=== PATIENT | male | born 1955 | race Caucasian/White ===

== ENCOUNTER 2017-11-26 08:13 | Observation (INO) | payer OTHER, MEDICARE, SELFPAY ==
[2017-11-26] VITALS (23 sets, daily range): BP systolic 113–157; BP diastolic 55–93; PULSE 76–104; RESP 15–18; TEMP 36.1–36.9; O2SAT 97–100; BMI 38.7; BMI 31.6; BMI 31.7
[2017-11-26] MEDS: 0.9% Normal Saline 1,000 ML 1000 ML IV (09:15)
[2017-11-26 09:31] LABS: BUN 23 mg/dL (7-18); Creatinine, Serum 1.13 mg/dL (0.70-1.30); EST Glomerular Filtration Rate 70 mL/min (>60); Estimated Creatinine Clearance 57.48 ml/min; Glucose 108 mg/dL (74-106)
[2017-11-26 09:32] LABS: ALB/GLOB Ratio 1.1 RATIO (0.9-2.4); AST(SGOT) 12 U/L (15-37); Alanine Aminotransfer ALT/SGPT 21 U/L (16-61); Albumin, Serum 3.5 g/dL (3.2-5.0); Alkaline Phosphatase 54 U/L (45-117); Anion Gap 5 (5-15); BUN/Creat Ratio 20.4 RATIO (10-20); Calcium,Total 8.3 mg/dL (8.5-10.1); Chloride 110 mmol/L (98-107); Est Glom Filt Rate - Afr Amer 85 mL/min (>60); Globulin 3.1 g/dL (2.2-4.2); Potassium 4.5 mmol/L (3.5-5.1); Protein, Total 6.6 g/dL (6.4-8.2); Sodium Level 141 mmol/L (136-145)
[2017-11-26 09:34] LABS: Absolute Lymphocyte Count 0.74 X10^3/ul (0.83-4.51); Absolute Neutrophil Count 2.6 X10^3/uL (2.0-7.7); Basophil# 0.03 X10^3/uL; Basophil% 0.8 % (0-1); Eosinophil# 0.04 X10^3/uL; Hematocrit 17.6 % (40-54); Hemoglobin 5.1 g/dl (13.0-16.5); Lymphocyte # 0.74 X10^3/ul (4.0); Lymphocyte % 18.6 % (19-41); Mean Corpuscular Hgb 23.3 pg (27.0-32.0); Mean Corpuscular Volume 80.4 fL (80-94); Mean Platelet Vol. 9.4 fl (6.2-12.0); Monocyte# 0.52 X10^3/uL; Monocyte% 13.1 % (0-10); Neutrophil # 2.63 X10^3/uL (2.7-7.7); Neutrophil % 66.2 % (47-70); Platelet Count 355 K/mm3 (150-450); RBC Distribution Width CV 15.3 % (11.6-14.6); RBC Distribution Width SD 42.2 fl (35.1-43.9); Red Blood Count 2.19 M/mm3 (4.6-6.2)
[2017-11-26 09:37] LABS: Differential Indicated SCAN CRITERIA MET; POSITIVE COUNT YES; POSITIVE DIFFERENTIAL NO; POSITIVE MORPHOLOGY NO
[2017-11-26 09:52] LABS: Anisocytosis 1+
--- NOTE | 2017-11-26 09:58 | ED.VISSUMM ---
- ER Visit Summary Date of Service: 11/26/17 Chief Complaint: [Dizziness and abnormal labs] History of Present Illness: The patient is a 62 M [presents to the emergency department with complaint of dizziness that started about a month ago initially. Patient states that he had a hard time standing and walking for a few days a month ago but then that resolved. Patient over the last 3 or 4 days has had increased weakness in lightheadedness with standing. Patient feels short of breath. Patient feels generally weak. Patient was seen yesterday by Dr. Barba who ordered some blood work and today was noted that his hemoglobin was 6.1 therefore patient was referred to the emergency department. Patient states that since yesterday's noted that his stools been black in color. Patient has had black stool before after using acid reducers. Patient denies any abdominal pain. Patient denies hematemesis.] Physical Examination: [HEENT-PERRLA, EOMI. Cranial nerves II through XII grossly intact. TMs clear. Mucous membranes moist. No adenopathy. Generally pale appearing. Cardiovascular-regular rate and rhythm without murmur or ectopy Lungs-clear to auscultation, chest wall stable without crepitus or subcu emphysema Abdomen-normoactive bowel sounds, soft, nontender, no rebound or rigidity, no peritoneal signs. Rectal exam-no blood in the rectal vault, no stool in the rectal vault, Hemoccult negative Extremities-intact ?4, normal range of motion, normal pulses, atraumatic] Test Results: [CBC with differential obtained showed a white count of 4.0, hemoglobin 5.1, hematocrit 17.6, platelets 355. Chemistries unremarkable. BUN was 23 and creatinine was 1.13.] Orthostatic vital signs were negative Emergency Department Course and Treatment: [Patient was given a liter normal same fluid bolus and was typed and crossed for 2 units packed red cells. Patient was started on Protonix IV.] Treatment Plan: [Patient case was discussed with Dr. Ramez Aguilar who will consult on the case I also spoke with Dr. Yariel Goldman who will admit patient. Plan will be to perform EGD tomorrow by Dr. Aguilar.] Disposition: [Admit] Impression: [Anemia-suspect upper GI bleed] This note was generated with [employer] software. It may contain incorrect words, spelling, and punctuation that were not noted in review of the chart prior to signing ED Disposition - Plan for ED Patient: Chief Complaint: Abn Labs Referrals: Rishabh Barba MD [Primary Care Provider] -
--- NOTE | 2017-11-26 10:04 | PCM.HP.STD ---
Problem List (1) Anemia Status: Acute (2) BMI 31.0-31.9,adult Status: Chronic History of Present Illness Date of Admission: 11/26/17 Chief Complaint: Generalized weakness The patient is a 62 year old M to the [facility] with no significant past medical history resides with generalized weakness. Patient reports a month history of progressive generalized weakness with minimal activity. Patient was seen and evaluated by his primary care physician Dr. Barba a day prior to his admission. Lab work was taken as a result was called the following day to present to the emergency department because was found to be profoundly anemic. Patient upon arrival to the emergency department was found to have hemoglobin of 5.1. On further questioning patient denied any epigastric discomfort. Denied any melenic stools. His last colonoscopy was 3 years prior to this admission they found polyps which were benign. Patient was typed and crossed much in the ED blood transfusion initiated the surgeon special education professional Dr. Aguilar was notified prior to patient being admitted to regular nursing floor for further management Past Medical History Past Medical History (Chronic Problems): Chronic Problems BMI 31.0-31.9,adult (Chronic) Allergies No Known Allergies Allergy (Verified 11/26/17 08:17) Home Medications: Ambulatory Orders Medication Instructions Recorded NK [NK] 11/26/17 Surgical History: no surgical history Smoking Status: Former smoker - *Family History Maternal History Items: Cancer - Paternal History Items: Cancer - Review of Systems Constitutional: Reports: Malaise, Weakness HEENT: Denies: Head Aches, Sinus Congestion, Sinus Drainage Cardiovascular: Denies: Chest Pain, Orthopnea, Palpitations, Paroxysmal Noc. Dyspnea Respiratory: Denies: Cough, Shortness of breath at rest, Shortness of breath upon exertion, Sputum production Gastrointestinal: Denies: Abdominal Pain, Hematemesis, Hematochezia, Nausea, Melena, Vomiting Genitourinary: Denies: Dysuria, Frequency, Hematuria, Urgency Musculoskeletal: Denies: Joint Pain, Joint Tenderness Skin: Denies: Rash Neurological: Denies: Focal weakness, Numbness, Tingling Psychiatric: Denies: Homicidal Ideations, Suicidal Ideations Hematologic/ Lymphatic: Denies: Easy Bruising, Easy Bleeding VTE Information - Inpt Only VTE Present on Admission: No VTE Mechan Device Prophylaxis: Knee High ANTHONY Hose VTE Pharm Prophylaxis ordered?: No Reason prophylaxis not ordered:: Medical Contraindication Patient Problems: Active and Suspected Problems Anemia (Acute) Objective: GENERAL: cooperative HEENT: pale conjunctiva, moist oral mucosa NECK; supple, normal thyroid, CHEST: Clear to auscultation bilaterally, HEART: Regular S1 S2, no audible murmurs ABDOMEN: soft, non-tender, normoactive bowel sounds, RECTAL: deferred EXTREMITIES: No edema, no clubbing, no cyanosis. SOIL TECHNOLOGIST: Awake, no lateralizing signs. SKIN: No lesions no erythema, - Physical Exam Vital Signs Temp Pulse Resp BP Pulse Ox 96.9 F L 91 16 137/62 H 98 11/26/17 08:15 11/26/17 09:22 11/26/17 09:20 11/26/17 09:22 11/26/17 09:20 Oxygen Delivery Method Room Air Weight: 102.4 kg Body Mass Index (BMI) 38.7 Microbiology Past 72 Hours 11/26/17 08:55 Stool Occult Blood (DASHA) - Final Stool Laboratory Tests Past 24 Hrs 11/26/17 11/26/17 11/26/17 08:55 09:00 09:00 WBC 4.0 L RBC 2.19 L Hgb 5.1 L* Hct 17.6 L MCV 80.4 MCH 23.3 L MCHC 29.0 L RDW 15.3 H RDW Differential 42.2 Plt Count 355 MPV 9.4 Immature Gran % (Auto) 0.300 Neut % (Auto) 66.2 Lymph % (Auto) 18.6 L [place] % (Auto) 13.1 H Eos % (Auto) 1.0 Baso % (Auto) 0.8 Absolute Neuts (auto) 2.6 Absolute Lymphs (auto) 0.74 L Total Counted Not Reportable Anisocytosis 1+ Sodium 141 Potassium 4.5 Chloride 110 H Carbon Dioxide 26.0 Anion Gap 5 BUN 23 H Creatinine 1.13 Estim Creat Clear Calc 57.48 Est GFR (MDRD) Af Amer 85 Est GFR (MDRD) Non-Af 70 BUN/Creatinine Ratio 20.4 H Glucose 108 H Calcium 8.3 L Total Bilirubin 0.30 AST 12 L ALT 21 Alkaline Phosphatase 54 Total Protein 6.6 Albumin 3.5 Globulin 3.1 Albumin/Globulin Ratio 1.1 Blood Type B NEGATIVE Antibody Screen NEGATIVE Crossmatch See Detail Assessment/Plan Active and Suspected Problems Anemia (Acute) Patient is a 62-year-old gentleman presented with progressive generalized weakness with easy fatigability found to be anemic with hemoglobin of 5.1 1. Anemia do suspect chronic blood loss anemia. Patient has been admitted to regular nursing floor did order for iron studies as well as stool guaiac. Patient did receive Protonix consultation was placed to Dr. Aguilar from the emergency department plans for patient undergo endoscopic evaluation on 11/27/2017. 2. Obesity with BMI of 31.7 weight loss advised 3. DVT prophylaxis in view of #1 did avoid the use of chemical prophylaxis Code Visit OBSV E&M: 22539 Initial observation care L3
[2017-11-26 12:09] LABS: Ferritin 4 ng/mL (26-388); Iron 9 ug/dL (65-175); Iron Binding Capacity,Total 516 ug/dL (250-450); PERCENT IRON SATURATION 1.7 % (15.0-55.0)
[2017-11-26 12:21] LABS: Immature Platelet Fraction 3.1 % (1.0-7.9); RET-HE 14.7 pg (30-35); Reticulocyte Count 3.82 % (0.5-1.5)
[2017-11-26 12:21] LABS: Vitamin B12 381 pg/mL (211-911)
--- NOTE | 2017-11-26 12:44 | CON.PCM_ITS ---
Problem List (1) Anemia Status: Acute Qualifiers: Anemia type: unspecified type Qualified Code(s): D64.9 - Anemia, unspecified Reason for Consult Date of Consultation: 11/26/17 History of Present Illness: The patient is a 62 year old M to the [facility] with no significant past medical history resides with generalized weakness. Patient reports a month history of progressive generalized weakness with minimal activity. Patient was seen and evaluated by his primary care physician Dr. Barba a day prior to his admission. Lab work was taken as a result was called the following day to present to the emergency department because was found to be profoundly anemic. Patient upon arrival to the emergency department was found to have hemoglobin of 5.1. On further questioning patient denied any epigastric discomfort. Denied any melenic stools. His last colonoscopy was 3 years prior to this admission they found polyps which were benign. Patient was typed and crossed much in the ED blood transfusion initiated. He will be admitted and undergo a bowel prep and tomorrow morning will undergo an upper and lower endoscopy. Past Medical History Past Medical History (Chronic Problems): Chronic Problems BMI 31.0-31.9,adult (Chronic) Allergies No Known Allergies Allergy (Verified 11/26/17 08:17) Home Medications: Ambulatory Orders Medication Instructions Recorded NK [NK] 11/26/17 Surgical History: no surgical history Smoking Status: Former smoker - *Family History Maternal History Items: Cancer - Paternal History Items: Cancer - Review of Systems Constitutional: Reports: Fatigue Cardiovascular: Denies: Chest Pain, Chest Pressure, Chest Tightness, Palpitations Respiratory: Reports: Shortness of Breath Gastrointestinal: Denies: Abdominal Pain, Constipation, Diarrhea, Hematemesis, Nausea, Melena, Vomiting Genitourinary: Denies: Dysuria, Frequency, Hematuria, Urgency Patient Problems: Active and Suspected Problems Anemia (Acute) - Physical Exam General: Alert, Oriented x3 HEENT: Atraumatic, PERRLA, EOMI, Normocephalic Oral: Moist Mucosa Lungs: Clear to auscultation Cardiovascular: Regular rate, Regular Rhythm, No murmurs Abdomen: Bowel Sounds Present, Soft, Non Tender, Non-Distended Vital Signs Temp Pulse Resp BP Pulse Ox 98.0 F 85 18 157/75 H 100 11/26/17 11:27 11/26/17 11:27 11/26/17 11:27 11/26/17 11:27 11/26/17 11:27 Oxygen Flow Rate (L/min) 2 Oxygen Delivery Method Room Air Weight: 227 lb 1.218 oz Body Mass Index (BMI) 31.6 Intake and Output for Last 24 Hours 11/24/17 11/25/17 11/26/17 23:59 23:59 23:59 Intake Total 0 / 0 Balance 0 / 0 Assessment/Plan Active and Suspected Problems Anemia (Acute) The plan is perform an upper and lower endoscopy on the patient tomorrow morning. He will be given a bowel prep tonight. Risk benefits of the procedure have been reviewed with he and his family and they agree to proceed.
[2017-11-26] MEDS: 0.9% Normal Saline 1,000 ML 75 ML IV (15:55)
[2017-11-26] MEDS: Electrolyte Solution/Peg's 4000 ML PO (15:56)
[2017-11-26 18:08] LABS: Hematocrit 26.1 % (40-54); Hemoglobin 6.1 g/dl (13.0-16.5)
[2017-11-27] VITALS (12 sets, daily range): BP systolic 101–143; BP diastolic 39–99; PULSE 71–78; RESP 16–18; TEMP 36.6–36.7; O2SAT 95–100; BMI 31.8
[2017-11-27] MEDS: 0.9% NaCl Peripheral Flush Adult/Peds IV (01:51)
[2017-11-27 04:02] LABS: Hemoglobin 9.1 g/dl (13.0-16.5)
[2017-11-27 04:05] LABS: International Normalized Ratio 1.2; Prothrombin Time (Protime)PT. 14.8 SECONDS (11.7-14.9)
[2017-11-27 04:06] LABS: Partial Thromboplast Time 29.7 Seconds (24.1-36.2)
[2017-11-27 04:22] LABS: Anion Gap 10 (5-15); BUN 16 mg/dL (7-18); BUN/Creat Ratio 18.5 RATIO (10-20); Calcium,Total 7.7 mg/dL (8.5-10.1); Chloride 114 mmol/L (98-107); Creatinine, Serum 0.86 mg/dL (0.70-1.30); EST Glomerular Filtration Rate 96 mL/min (>60); Est Glom Filt Rate - Afr Amer 116 mL/min (>60); Estimated Creatinine Clearance 93.14 ml/min; Glucose 88 mg/dL (74-106); Sodium Level 145 mmol/L (136-145)
--- NOTE | 2017-11-27 05:00 | EKG12_ITS ---
Test Reason : AM EKG Blood Pressure : / mmHG Vent. Rate : 075 BPM Atrial Rate : 075 BPM P-R Int : 152 ms QRS Dur : 092 ms QT Int : 408 ms P-R-T Axes : 005 040 029 degrees QTc Int : 455 ms Normal sinus rhythm Normal ECG When compared with ECG of 15-APR-2012 13:54, No significant change was found Confirmed by TONJA AKINS, LETICIA ([id number]), mapping editor CARLY GONZALEZ ([id number]) on 12/10/2017 2:21:21 PM Referred By: RODNEY Confirmed By:LETICIA EVANGELISTA MD
--- NOTE | 2017-11-27 06:50 | NURSING ---
Pt has left the floor with 2 endoscopy staff members.
--- NOTE | 2017-11-27 07:25 | PCM.OPRPT ---
Problem List (1) Anemia Status: Acute Qualifiers: Anemia type: unspecified type Qualified Code(s): D64.9 - Anemia, unspecified Report of Operation Date of Procedure: 11/27/17 Pre-Operative Diagnosis: d64 9 anemia Post-Operative Diagnosis: The same with gastric ulcers Surgery/Procedure Performed:: 99881 esophagogastroduodenoscopy. 80368 colonoscopy Type of Anesthesia:: MAC Anesthesiologist: Km Jaime Description of Procedure: Patient was brought into the endoscopy suite. Back of his throat was sprayed with benzocaine. A bite-block was placed. He was placed on the left lateral decubitus position. He was given graded anesthesia. The scope was inserted into the back of his throat and directed down through his esophagus into his stomach and into the duodenum without difficulty operative findings: 1. Duodenum: Normal appearance no mass lesions no ulcerations no erythema and no blood was seen. 2. Stomach: Significant amount of small ulcers throughout the body of the stomach. Nothing was actively bleeding there were no clots there were no visible vessel seen. Retroflexion showed a large hiatal hernia diaphragm was at 39 cm and the GE junction was located at 34 cm. Retroflexion did show some irritation at the GE junction. No mass lesions were identified. 3. Esophagus: Normal appearance no mass lesions no signs of esophagitis. The colonoscope was inserted into the rectum. It was directed through the sigmoid colon, descending colon, transverse colon, ascending colon, to the cecum. Operative findings: 1. Cecum: Normal appearance no mass lesions normal ileocecal valve. 2. Ascending colon: Normal appearance no mass lesions 3. Transverse colon: Normal appearance no mass lesions. 4. Descending colon: Normal appearance no mass lesions. 5. Sigmoid colon: Normal appearance moderate amount of diverticular disease was identified no mass lesions no signs of bleeding. 6. Rectum: Normal appearance no mass lesions retroflexion showed some minimal internal hemorrhoidal disease. Obvious source of his bleeding is from the gastric ulcers. Patient will need to be placed on a proton pump inhibitor as well as Carafate. More than likely he will be able to be discharged today and follow back up in my office. He will need to have another upper scope in 6 weeks. He will need another colonoscopy in 10 years. - Admit VTE Documentation VTE Present on Admission: No VTE Mechan Device Prophylaxis: SCD's VTE Pharm Prophylaxis ordered?: No Reason prophylaxis not ordered:: Treatment Not Indicated
--- NOTE | 2017-11-27 09:06 | PCM.DC ---
- Discharge Diagnoses Current Active Problems: Current Active and Chronic Problems Anemia (Acute) BMI 31.0-31.9,adult (Chronic) You will use the following diet at home:: No restrictions Allergies/Adverse Reactions: Allergies No Known Allergies Allergy (Verified 11/26/17 08:17) Medications to take at Discharge Pantoprazole Sodium [Protonix] 40 mg PO DAILY #120 tab 11/27/17 Sucralfate [Carafate] 1 gm PO 4X/DAY #120 udc 11/27/17 The following prescriptions were given: Pantoprazole Sodium [Protonix] 40 mg PO DAILY #120 tab Sucralfate [Carafate] 1 gm PO 4X/DAY #120 udc Primary Care Physician: Rishabh Barba MD [Primary Care Provider] - Please follow up with your Primary Care Physician in: in 1-2 weeks Please Follow Up With: Ramez Aguilar MD When: in 2-4 weeks Proposed Discharge Date: 11/27/17
--- NOTE | 2017-11-27 09:08 | PCM.DC.SUM ---
Discharge Date and Diagnosis - Problem List Patient Problems: Active and Suspected Problems NSAID induced gastritis (Acute) Anemia (Acute) Date of Admission: 11/26/17 Date of Discharge: 11/27/17 - Primary Discharge Diagnosis Active and Suspected Problems NSAID induced gastritis (Acute) Anemia (Acute) - Secondary Discharge Diagnosis Chronic Problems BMI 31.0-31.9,adult (Chronic) Hospital Course and Treatment Imaging Results: Laboratory Results Abnormal Lab Results 11/26/17 11/26/17 11/26/17 08:55 08:55 09:00 WBC 4.0 L RBC 2.19 L Hgb 5.1 L* Hct 17.6 L MCV 80.4 MCH 23.3 L MCHC 29.0 L RDW 15.3 H RDW Differential 42.2 Plt Count 355 MPV 9.4 Immature Gran % (Auto) 0.300 Neut % (Auto) 66.2 Lymph % (Auto) 18.6 L [place] % (Auto) 13.1 H Eos % (Auto) 1.0 Baso % (Auto) 0.8 Absolute Neuts (auto) 2.6 Absolute Lymphs (auto) 0.74 L Total Counted Not Reportable Immature Plt Fraction 3.1 Anisocytosis 1+ Retic Count 3.82 H Immature Retic Fraction 13.60 Retic Hgb Equivalent 14.7 L PT INR APTT Sodium 141 Potassium 4.5 Chloride 110 H Carbon Dioxide 26.0 Anion Gap 5 BUN 23 H Creatinine 1.13 Estim Creat Clear Calc 57.48 Est GFR (MDRD) Af Amer 85 Est GFR (MDRD) Non-Af 70 BUN/Creatinine Ratio 20.4 H Glucose 108 H Calcium 8.3 L Iron TIBC Iron Saturation Ferritin Total Bilirubin 0.30 AST 12 L ALT 21 Alkaline Phosphatase 54 Total Protein 6.6 Albumin 3.5 Globulin 3.1 Albumin/Globulin Ratio 1.1 Vitamin B12 Blood Type Antibody Screen Crossmatch 11/26/17 11/26/17 11/26/17 09:00 09:00 09:00 WBC RBC Hgb Hct MCV MCH MCHC RDW RDW Differential Plt Count MPV Immature Gran % (Auto) Neut % (Auto) Lymph % (Auto) [place] % (Auto) Eos % (Auto) Baso % (Auto) Absolute Neuts (auto) Absolute Lymphs (auto) Total Counted Immature Plt Fraction Anisocytosis Retic Count Immature Retic Fraction Retic Hgb Equivalent PT INR APTT Sodium Potassium Chloride Carbon Dioxide Anion Gap BUN Creatinine Estim Creat Clear Calc Est GFR (MDRD) Af Amer Est GFR (MDRD) Non-Af BUN/Creatinine Ratio Glucose Calcium Iron 9 L TIBC 516 H Iron Saturation 1.7 L Ferritin 4 L Total Bilirubin AST ALT Alkaline Phosphatase Total Protein Albumin Globulin Albumin/Globulin Ratio Vitamin B12 381 Blood Type B NEGATIVE Antibody Screen NEGATIVE Crossmatch See Detail 11/26/17 11/26/17 11/27/17 09:00 16:40 03:30 WBC RBC Hgb 6.1 L Hct 26.1 L MCV MCH MCHC RDW RDW Differential Plt Count MPV Immature Gran % (Auto) Neut % (Auto) Lymph % (Auto) [place] % (Auto) Eos % (Auto) Baso % (Auto) Absolute Neuts (auto) Absolute Lymphs (auto) Total Counted Immature Plt Fraction Anisocytosis Retic Count Immature Retic Fraction Retic Hgb Equivalent PT INR APTT Sodium 145 Potassium 4.0 Chloride 114 H Carbon Dioxide 21.0 Anion Gap 10 BUN 16 Creatinine 0.86 Estim Creat Clear Calc 93.14 Est GFR (MDRD) Af Amer 116 Est GFR (MDRD) Non-Af 96 BUN/Creatinine Ratio 18.5 Glucose 88 Calcium 7.7 L Iron TIBC Iron Saturation Ferritin Total Bilirubin AST ALT Alkaline Phosphatase Total Protein Albumin Globulin Albumin/Globulin Ratio Vitamin B12 Blood Type Antibody Screen Crossmatch See Detail 11/27/17 11/27/17 03:30 03:30 WBC RBC Hgb 9.1 L Hct 28.0 L MCV MCH MCHC RDW RDW Differential Plt Count MPV Immature Gran % (Auto) Neut % (Auto) Lymph % (Auto) [place] % (Auto) Eos % (Auto) Baso % (Auto) Absolute Neuts (auto) Absolute Lymphs (auto) Total Counted Immature Plt Fraction Anisocytosis Retic Count Immature Retic Fraction Retic Hgb Equivalent PT 14.8 INR 1.2 APTT 29.7 Sodium Potassium Chloride Carbon Dioxide Anion Gap BUN Creatinine Estim Creat Clear Calc Est GFR (MDRD) Af Amer Est GFR (MDRD) Non-Af BUN/Creatinine Ratio Glucose Calcium Iron TIBC Iron Saturation Ferritin Total Bilirubin AST ALT Alkaline Phosphatase Total Protein Albumin Globulin Albumin/Globulin Ratio Vitamin B12 Blood Type Antibody Screen Crossmatch ED and colonoscopy performed by Dr. Aguilar on 11/26/2017 EGD findings: 1. Duodenum: Normal appearance no mass lesions no ulcerations no erythema and no blood was seen. 2. Stomach: Significant amount of small ulcers throughout the body of the stomach. Nothing was actively bleeding there were no clots there were no visible vessel seen. Retroflexion showed a large hiatal hernia diaphragm was at 39 cm and the GE junction was located at 34 cm. Retroflexion did show some irritation at the GE junction. No mass lesions were identified. 3. Esophagus: Normal appearance no mass lesions no signs of esophagitis. Colonoscopy findings 1. Cecum: Normal appearance no mass lesions normal ileocecal valve. 2. Ascending colon: Normal appearance no mass lesions 3. Transverse colon: Normal appearance no mass lesions. 4. Descending colon: Normal appearance no mass lesions. 5. Sigmoid colon: Normal appearance moderate amount of diverticular disease was identified no mass lesions no signs of bleeding. 6. Rectum: Normal appearance no mass lesions retroflexion showed some minimal internal hemorrhoidal disease. Summary of Care Provided: Patient is a 62-year-old gentleman presented with progressive generalized weakness with easy fatigability found to be anemic with hemoglobin of 5.1 1. Anemia secondary to acute on chronic blood loss anemia from NSAID induced gastritis. This was confirmed with history as well as endoscopy performed by Dr. Aguilar on 11/26/2017. Patient did receive a total of unit PRBC. Discharge hemoglobin 9. Was advised to avoid NSAIDs on discharge was prescribed on Carafate and PPI with plans for patient undergo repeat EGD in [address] Aguilar. 2. Obesity with BMI of 31.7 weight loss advised 3. DVT prophylaxis in view of #1 did avoid the use of chemical prophylaxis Discharge Diet: No Restrictions Discharge Activity: Return to Normal Activity Home Medications: Medications to take at Discharge Pantoprazole Sodium [Protonix] 40 mg PO DAILY #120 tab 11/27/17 Sucralfate [Carafate] 1 gm PO 4X/DAY #120 udc 11/27/17 Following Prescrptions Were Given to Patient: Pantoprazole Sodium [Protonix] 40 mg PO DAILY #120 tab Sucralfate [Carafate] 1 gm PO 4X/DAY #120 udc Primary Care Physician: Rishabh Barba MD [Primary Care Provider] - Please follow up with your Primary Care Physician in: in 1-2 weeks Please Follow Up With: Ramez Aguilar MD When: in 2-4 weeks Disposition: Home Minutes spent on discharge:: 35 Patient Condition:: Stable Medical Necessity - Tobacco Use Smoking Status: Former smoker Meaningful Use Info Meaningful Use Diagnoses (Choose all that apply): None applicable Code Visit OBSV E&M: 86003 Observation care discharge
== END 2017-11-27 10:24 | disposition home or self-care (01) ==
LOC: ED 10:37 → MS3 10:59
PROVIDERS: Anesthesiology; Surgery; Admitting Provider Internal Medicine; Emergency Provider Emergency Medicine; Family Provider Family Medicine; PCP Family Medicine; Visit Provider Internal Medicine
PROC: 0DJD8ZZ Inspection of Lower Intestinal Tract, Via Natural or Artificial Opening Endoscopic (ICD-10-PCS; CPT 45378; principal; 2017-11-27 06:55)
DX: K29.60 Other gastritis without bleeding (principal); D62 Acute posthemorrhagic anemia; D50.0 Iron deficiency anemia secondary to blood loss (chronic); E66.9 Obesity, unspecified; Z68.31 Body mass index [BMI] 31.0-31.9, adult; Z71.3 Dietary counseling and surveillance; Z87.891 Personal history of nicotine dependence; K44.9 Diaphragmatic hernia without obstruction or gangrene; K64.8 Other hemorrhoids; K57.30 Diverticulosis of large intestine without perforation or abscess without bleeding
CPT/HCPCS: 43235; 45378; 36415; 36430; 80048; 80053; 82274; 82607; 82728; 83540; 83550; 85014; 85018; 85025; 85045; 85610; 85730; 86850; 86900; 86920; 86922; 93005; 96361; 96365; 96366; 96376; 99218; 99284; J7030; J7040; P9016; A4216; G0378; J1610; J3490

== ENCOUNTER 2018-01-05 06:15 | Day surgery (SDC) | payer OTHER, SELFPAY ==
--- NOTE | 2018-01-05 06:15 | DT_ITS ---
This patient was seen during an EMR downtime January 03, 2018 - January 10, 2018. This patient may have a combination of paper and electronic documentation or all paper documentation. All documentation is viewable within the e-chart portion of [facility] for each patient visit.
== END 2018-01-05 08:52 | disposition home or self-care (01) ==
LOC: EN 01-06 11:20
PROVIDERS: Family Provider Family Medicine; PCP Family Medicine; Visit Provider Surgery
PROC: 0DJ08ZZ Inspection of Upper Intestinal Tract, Via Natural or Artificial Opening Endoscopic (ICD-10-PCS; CPT 43235; principal; 2018-01-05 07:25)
DX: K21.9 Gastro-esophageal reflux disease without esophagitis (principal); Z87.19 Personal history of other diseases of the digestive system; D64.9 Anemia, unspecified; Z87.891 Personal history of nicotine dependence
CPT/HCPCS: 43235; J7120

== ENCOUNTER 2019-04-20 08:25 | Observation (INO) | payer OTHER, MEDICARE, SELFPAY ==
[2017-11-27 06:20] VITALS: BMI 31.8
[2019-04-20] VITALS (15 sets, daily range): BP systolic 83–142; BP diastolic 47–92; PULSE 89–116; RESP 16–18; TEMP 36.1–37.1; O2SAT 97–100; BMI 33.5; BMI 33.6
[2019-04-20 09:09] LABS: Absolute Lymphocyte Count 1.74 X10^3/uL (0.83-4.51); Absolute Neutrophil Count 7.5 X10^3/uL (2.0-7.7); Basophil# 0.05 X10^3/uL; Basophil% 0.5 % (0-1); Eosinophil# 0.05 X10^3/uL; Eosinophils% 0.5 % (0-5); Hematocrit 32.3 % (40-54); Hemoglobin 10.7 g/dL (13.0-16.5); Lymphocyte # 1.74 X10^3/ul (4.0); Lymphocyte % 16.7 % (19-41); Mean Corp Hgb Conc 33.1 g/dL (32-36); Mean Corpuscular Hgb 29.3 pg (27.0-32.0); Mean Corpuscular Volume 88.5 fL (80-94); Mean Platelet Vol. 9.6 fl (6.2-12.0); Monocyte# 1.12 X10^3/uL; Monocyte% 10.7 % (0-10); NRBC Flagged by Analyzer 0 % (0-5); Neutrophil # 7.45 X10^3/uL (2.7-7.7); Neutrophil % 71.3 % (47-70); Platelet Count 327 K/mm3 (150-450); RBC Distribution Width CV 13.4 % (11.6-14.6); RBC Distribution Width SD 43.8 fl (35.1-43.9); Red Blood Count 3.65 M/mm3 (4.6-6.2); White Blood Count 10.4 K/mm3 (4.4-11.0)
[2019-04-20 09:22] LABS: Anion Gap 10 (5-15); BUN 37 mg/dL (7-18); BUN/Creat Ratio 32.7 RATIO (10-20); Calcium,Total 8.4 mg/dL (8.5-10.1); Chloride 110 mmol/L (98-107); Creatinine, Serum 1.13 mg/dL (0.70-1.30); EST Glomerular Filtration Rate 70 mL/min (>60); Est Glom Filt Rate - Afr Amer 84 mL/min (>60); Estimated Creatinine Clearance 72.19 ml/min; Glucose 127 mg/dL (74-106); Potassium 4.2 mmol/L (3.5-5.1); Sodium Level 141 mmol/L (136-145)
--- NOTE | 2019-04-20 09:26 | ED.DCSUM_ITS ---
- ER Visit Summary Date of Service: 04/20/19 Chief Complaint: [Black stool and lightheaded History of Present Illness: The patient is a 63 M presents the emergency department complaint of stool that is black since yesterday. Patient also feeling lightheaded this morning and was also lightheaded last evening. He has some mild epigastric tenderness. Patient denies vomiting blood. He does have history of bleeding ulcer. Last colonoscopy was about a year ago. Patient denies taking NSAIDs. Patient denies any chest pain or shortness of breath.] Physical Examination: [HEENT-PERRLA, EOMI. Cranial nerves II through XII grossly intact. TMs clear. Mucous membranes moist. No adenopathy. Cardiovascular-regular rate and rhythm without murmur or ectopy Lungs-clear to auscultation, chest wall stable without crepitus or subcu emphysema Abdomen-normoactive bowel sounds, soft. Patient has some mild tenderness in the epigastric region. There is no rebound, rigidity, or perineal signs. Rectal exam-patient had black tarry stool no masses palpated in the rectal vault. Extremities-intact ?4, normal range of motion, normal pulses, atraumatic] Test Results: [CBC with differential obtained showed a white count of 10.4, hemoglobin 10.7, hematocrit 32, placed 327. Chemistries unremarkable. BUN was 37 and creatinine 1.13.] Hemoccult of stool was negative which I believe is a false negative. Emergency Department Course and Treatment: [Patient had 2 lines established. Patient was given normal saline 1 L bolus. Patient was seen in the department by general surgeon Dr. Betancourt who will admit the patient.] Patient was started on Protonix IV Treatment Plan: [Admit for upper scope] Disposition: [Admit] Impression: [Upper GI bleed] This note was generated with [employer] dictation software. It may contain incorrect words, spelling, and punctuation that were not noted in review of the chart prior to signing ED Disposition - Plan for ED Patient: Referrals: Rishabh Barba MD [Primary Care Provider] -
[2019-04-20] MEDS: 0.9% Normal Saline 1,000 ML 1000 ML IV (09:28)
--- NOTE | 2019-04-20 09:32 | PCM.HP.STD ---
Problem List (1) GI bleed Status: Acute Qualifiers: GI bleed type/associated pathology: melena Qualified Code(s): K92.1 - Melena History of Present Illness Date of Admission: 04/20/19 Chief Complaint: Dizziness and weakness The patient is a 63 year old M reports that he was dizzy yesterday evening. He has been having black tarry stools this morning. He does not describe any abdominal pain. He says he is very dizzy and weak. Past Medical History Past Medical History (Chronic Problems): Chronic Problems (Last Reviewed 12/28/17 @ 10:08 by Nicol Eagle) BMI 31.0-31.9,adult (Chronic) Medical History: Medical History (Last Reviewed 12/28/17 @ 10:08 by Nicol Eagle) NSAID induced gastritis (Acute) K29.60, T39.395A Anemia (Acute) D64.9 BMI 31.0-31.9,adult (Chronic) Z68.31 Allergies No Known Allergies Allergy (Verified 04/20/19 08:26) Home Medications: Ambulatory Orders Medication Instructions Recorded NK 04/20/19 Surgical History: Surgical History (Last Updated 12/28/17 @ 10:08 by Nicol Eagle) History of esophagogastroduodenoscopy (EGD) Z98.890 2018 Normal colonoscopy 2018 Surgical History: no surgical history Smoking Status: Never smoker - *Family History Maternal History Items: Cancer - Paternal History Items: Cancer - Review of Systems Constitutional: Reports: Fatigue. Denies: Anorexia, Chills, Fever HEENT: Denies: Difficulty Swallowing Cardiovascular: Denies: Chest Pain Respiratory: Denies: Cough, Pleuritic Pain, Shortness of Breath Gastrointestinal: Reports: Melena. Denies: Abdominal Pain, Hematemesis, Nausea, Vomiting Genitourinary: Denies: Dysuria Musculoskeletal: Denies: Joint Tenderness Skin: Denies: Jaundice Neurological: Denies: Balance problems Psychiatric: Denies: Anxiety Endocrine: Denies: Change in Body Habitus VTE Information - Inpt Only VTE Present on Admission: No VTE Mechan Device Prophylaxis: SCD's Patient Problems: Active and Suspected Problems (Last Reviewed 12/28/17 @ 10:08 by Nicol Eagle) GI bleed (Acute) - Physical Exam General: Alert, Oriented x3 HEENT: Atraumatic, PERRLA Neck: No JVD Lungs: Normal air movement Cardiovascular: Regular Rhythm, Tachycardic Abdomen: Soft, Non Tender, Non-Distended Extremities: No clubbing Skin: No rashes Musculoskeletal: No Muscle Wasting Lymphatic: No Cervical, Supraclavicular, or Inguinal Adenopathy Neurological: Cranial nerves II-XII grossly intact Psych/Mental Status: Normal Affect Vital Signs Temp Pulse Resp BP Pulse Ox 97.7 F L 107 H 16 124/88 H 99 04/20/19 08:26 04/20/19 09:30 04/20/19 09:30 04/20/19 09:30 04/20/19 08:56 Oxygen Delivery Method Room Air Weight: 240 lb Body Mass Index (BMI) 33.5 Microbiology Past 72 Hours 04/20/19 08:55 Stool Occult Blood (DASHA) - Final Stool Laboratory Tests Past 24 Hrs 04/20/19 04/20/19 04/20/19 08:58 08:58 08:58 WBC 10.4 RBC 3.65 L Hgb 10.7 L Hct 32.3 L MCV 88.5 MCH 29.3 MCHC 33.1 RDW Std Deviation 43.8 RDW Coeff of Joi 13.4 Plt Count 327 MPV 9.6 Immature Gran % (Auto) 0.300 Neut % (Auto) 71.3 H Lymph % (Auto) 16.7 L [place] % (Auto) 10.7 H Eos % (Auto) 0.5 Baso % (Auto) 0.5 Absolute Neuts (auto) 7.5 Absolute Lymphs (auto) 1.74 Nucleated RBC % 0 Sodium 141 Potassium 4.2 Chloride 110 H Carbon Dioxide 21.0 Anion Gap 10 BUN 37 H Creatinine 1.13 Estim Creat Clear Calc 72.19 Est GFR (MDRD) Af Amer 84 Est GFR (MDRD) Non-Af 70 BUN/Creatinine Ratio 32.7 H Glucose 127 H Lactic Acid Pending Calcium 8.4 L Blood Type Antibody Screen 04/20/19 08:58 WBC RBC Hgb Hct MCV MCH MCHC RDW Std Deviation RDW Coeff of Joi Plt Count MPV Immature Gran % (Auto) Neut % (Auto) Lymph % (Auto) [place] % (Auto) Eos % (Auto) Baso % (Auto) Absolute Neuts (auto) Absolute Lymphs (auto) Nucleated RBC % Sodium Potassium Chloride Carbon Dioxide Anion Gap BUN Creatinine Estim Creat Clear Calc Est GFR (MDRD) Af Amer Est GFR (MDRD) Non-Af BUN/Creatinine Ratio Glucose Lactic Acid Calcium Blood Type Pending Antibody Screen Pending Assessment/Plan All Active Problems (Last Reviewed 12/28/17 @ 10:08 by Nicol Eagle) GI bleed (Acute) NSAID induced gastritis (Acute) Anemia (Acute) 63-year-old male with upper GI bleed 1. Patient reports he is very lightheaded. He had black tarry stools and a rectal exam that also showed black tarry stool. His hemoglobin is 10 currently. He is not having any hematemesis. He had an EGD little over a year ago which showed multiple small ulcers in the stomach which were bleeding. He was started on a PPI and Carafate and did well until he stopped his PPI. 2. I will check a gastrin level to rule out ZE syndrome. I will also take biopsies of the antrum to check for H. pylori although his last H. pylori was negative. I will perform an EGD this morning to make sure that there is no overt bleeding which is able to be stopped with clips or injection. I will admit the patient following EGD and check serial hemoglobins and start PPI. 3. I explained endoscopy in detail to the patient. I explained the risks including but not limited to stroke or heart attack with anesthesia, perforation of the GI tract, bleeding, infection. I explained that any of these could necessitate further emergency surgery. The patient understands and all questions were answered sufficiently. The patient wishes to proceed with procedure. Tam Betancourt MD Pager: [facility] [address] [place] [address], [address] [place] [address] Office:
--- NOTE | 2019-04-20 10:00 | EGD_PTH ---
PATIENT: BONG CHATTERJEE LOC: MS3 U#:[id number] AGE/SX: 63/M ROOM: MS318 RE04/20/[address]: Dr. Tam Betancourt MD : 1955 BED: 1 DIS: 04/21/2019 SPEC #: [id number] RECD: 04/20/19 11:38 STATUS: GIBSON BRENNA #: [id number] KUMAR: 04/20/19 10:[address]: Tam Betancourt DEPT: SURGICAL PATHOLOGY RECD BY: Luis Enrique Jordan ENTERED: 04/20/19 14:24 SP TYPE: EGD BIOPSY [facility] DR: Dr. Rishabh Barba MD Tissues: A - Gastric mucous membrane B - Gastric mucous membrane Procedures: Surgery Specimen Level IV HEADER OPERATION: EGD ([facility]) PRE-OP DIAGNOSIS: GI bleed TISSUE SUBMITTED: A - Antral biopsy for H. pylori and pathology, B - Gastric ulcers biopsies for H.?pylori MICROSCOPIC DIAGNOSIS A. Antral biopsy: Mild gastritis. See microscopic description and comment. B. Gastric ulcer, biopsy: Fragments of gastric mucosa with focal ulceration, fibrinous exudation and acute and chronic inflammation. See comment. SJ:brie 04/21/19 COMMENT A & B. The results of immunohistochemistry for Helicobacter pylori will be reported separately ([id number]). MICROSCOPIC DESCRIPTION Slides are reviewed. A. The specimen shows fragments of gastric mucosa with chronic inflammatory cell infiltrates in the lamina propria consisting of lymphocytes and plasma cells, consistent with mild chronic gastritis. GROSS DESCRIPTION A - Received in fixative is one container labeled with the patient's name and designated antral biopsy. The specimen consists of two irregular fragments of light smiley soft tissue that in aggregate measure 0.5 x 0.3 x 0.1 cm. The specimen is totally submitted in one cassette. B - Received in fixative is one container labeled with the patient's name and designated gastric ulcer biopsy. The specimen consists of multiple irregular fragments of light smiley soft tissue that in aggregate measure 1 x 1 x 0.1 cm. The specimen is totally submitted in one cassette. / CHARLIE:brie 04/20/19 TC:2 CPT: 18010 x2
--- NOTE | 2019-04-20 10:00 | IMM_PTH ---
PATIENT: BONG CHATTERJEE LOC: MS3 U#:[id number] AGE/SX: 63/M ROOM: MS318 RE04/20/[address]: Dr. Tam Betancourt MD : 1955 BED: 1 DIS: 04/21/2019 SPEC #: [id number] RECD: 04/20/19 14:39 STATUS: GIBSON REQ #: [id number] KUMAR: 04/20/19 10:[address]: Tam Betancourt DEPT: IMMUNOHISTOCHEMISTRY RECD BY: Maribel Adams ENTERED: 04/20/19 14:40 SP TYPE: IMMUNO OTHR DR: Dr. Rishabh Barba MD Tissues: A - Stomach, NOS B - Stomach, NOS Procedures: H Pylori (initial) PHYSICIAN & INSTITUTION [place] [address] SPECIMEN INFORMATION: Tissue Source: A - Antral biopsy, B - Gastric ulcer biopsy Clinical Info: GI bleed Specimen Number: [id number] A & B CPT code: 86254 x2 METHODOLOGY: Deparaffinized sections of prefer/formalin-fixed tissue or PAP/DQ stained slides are incubated with monoclonal/polyclonal antibodies/oligonucleotide probes. Localization is made via biotin free immunoperoxidase method. Appropriate controls are performed and reacted as expected. Results on target cell population are indicated in the following table: RESULTS: ANTIBODY / CLONE RESULT Block A H Pylori (polyclonal) negative Block B H Pylori (polyclonal) negative These tests were developed and their performance characteristics determined by [facility]. They may not have been cleared or approved by the U.S. Food and Drug Administration. The FDA has determined that such clearance or approval is not necessary. INTERPRETATION: A. Antral biopsy: Negative for Helicobacter pylori organisms. B. Gastric ulcer biopsy: Negative for Helicobacter pylori organisms. SJ:brie 04/21/19
[2019-04-20] MEDS: 0.9% Normal Saline 1,000 ML 125 ML IV ×3 (10:04→14:09)
[2019-04-20 10:15] LABS: Lactic Acid 2.2 mmol/L (0.4-2.0)
--- NOTE | 2019-04-20 10:55 | OP.ENDO_ITS ---
04/20/2019 Rishabh Barba [address] [place] [address] Re : Upper GI endoscopy procedure for Jeffry Kennedy Dear Dr. Barba This procedure was performed on April. My impressions and recommendations are as follows: Impressions : - Non-bleeding gastric ulcers with no stigmata of bleeding. Biopsied. Recommendations : - Await pathology results. - Clear liquid diet. - [facility]. - Continue present medications. My findings are described in the full procedure note, which is enclosed. If I can be of further assistance, please feel free to contact me at Doctor phone number(s): , Work: . Sincerely, Tam Betancourt MD 04/20/2019 10:55:48 AM This report has been signed electronically.
[2019-04-20 13:04] LABS: Reflex Lactate? Y
[2019-04-20 14:27] LABS: Lactic Acid 4.1 mmol/L (0.4-2.0)
[2019-04-20] MEDS: Lactated Ringers 1,000 ML 999 ML IV (15:15)
[2019-04-20 15:23] LABS: Absolute Lymphocyte Count 1.89 X10^3/uL (0.83-4.51); Absolute Neutrophil Count 8.8 X10^3/uL (2.0-7.7); Basophil# 0.04 X10^3/uL; Basophil% 0.3 % (0-1); Eosinophil# 0.02 X10^3/uL; Eosinophils% 0.2 % (0-5); Hematocrit 28.7 % (40-54); Hemoglobin 9.1 g/dL (13.0-16.5); Lymphocyte # 1.89 X10^3/ul (4.0); Lymphocyte % 15.8 % (19-41); Mean Corp Hgb Conc 31.7 g/dL (32-36); Mean Corpuscular Hgb 28.5 pg (27.0-32.0); Mean Platelet Vol. 9.4 fl (6.2-12.0); Monocyte# 1.22 X10^3/uL; Monocyte% 10.2 % (0-10); NRBC Flagged by Analyzer 0 % (0-5); Neutrophil # 8.78 X10^3/uL (2.7-7.7); Neutrophil % 73.2 % (47-70); Platelet Count 242 K/mm3 (150-450); RBC Distribution Width CV 13.8 % (11.6-14.6); RBC Distribution Width SD 45.1 fl (35.1-43.9); Red Blood Count 3.19 M/mm3 (4.6-6.2)
[2019-04-20 15:35] LABS: Anion Gap 4 (5-15); BUN 33 mg/dL (7-18); BUN/Creat Ratio 31.1 RATIO (10-20); Calcium,Total 7.9 mg/dL (8.5-10.1); Chloride 112 mmol/L (98-107); Creatinine, Serum 1.06 mg/dL (0.70-1.30); EST Glomerular Filtration Rate 75 mL/min (>60); Est Glom Filt Rate - Afr Amer 91 mL/min (>60); Estimated Creatinine Clearance 76.96 ml/min; Glucose 107 mg/dL (74-106); Sodium Level 139 mmol/L (136-145)
[2019-04-20] MEDS: Sucralfate 1 GM Tablet PO ×2 (15:59→21:35)
[2019-04-20 19:47] LABS: Lactic Acid 1.8 mmol/L (0.4-2.0)
[2019-04-21] VITALS: PULSE 94; RESP 16
[2019-04-21] MEDS: 0.9% Normal Saline 1,000 ML 125 ML IV (00:59)
[2019-04-21 05:00] VITALS: BP 132/52; PULSE 89; RESP 18; TEMP 36.6; O2SAT 96
[2019-04-21] MEDS: Sucralfate 1 GM Tablet PO ×2 (06:40→11:00)
[2019-04-21 07:38] LABS: Absolute Lymphocyte Count 1.46 X10^3/uL (0.83-4.51); Absolute Neutrophil Count 3.3 X10^3/uL (2.0-7.7); Basophil# 0.03 X10^3/uL; Basophil% 0.6 % (0-1); Eosinophil# 0.06 X10^3/uL; Eosinophils% 1.1 % (0-5); Hematocrit 23.6 % (40-54); Hemoglobin 7.5 g/dL (13.0-16.5); Lymphocyte # 1.46 X10^3/ul (4.0); Lymphocyte % 26.9 % (19-41); Mean Corp Hgb Conc 31.8 g/dL (32-36); Mean Corpuscular Volume 91.1 fL (80-94); Mean Platelet Vol. 10.1 fl (6.2-12.0); Monocyte# 0.62 X10^3/uL; Monocyte% 11.4 % (0-10); NRBC Flagged by Analyzer 0 % (0-5); Neutrophil # 3.25 X10^3/uL (2.7-7.7); Neutrophil % 59.8 % (47-70); Platelet Count 188 K/mm3 (150-450); RBC Distribution Width CV 14.1 % (11.6-14.6); RBC Distribution Width SD 45.9 fl (35.1-43.9); Red Blood Count 2.59 M/mm3 (4.6-6.2); White Blood Count 5.4 K/mm3 (4.4-11.0)
[2019-04-21 07:52] LABS: Anion Gap 7 (5-15); BUN 19 mg/dL (7-18); BUN/Creat Ratio 21.9 RATIO (10-20); Calcium,Total 7.9 mg/dL (8.5-10.1); Chloride 112 mmol/L (98-107); Creatinine, Serum 0.87 mg/dL (0.70-1.30); EST Glomerular Filtration Rate 95 mL/min (>60); Est Glom Filt Rate - Afr Amer 115 mL/min (>60); Estimated Creatinine Clearance 93.76 ml/min; Glucose 90 mg/dL (74-106); Potassium 3.9 mmol/L (3.5-5.1); Sodium Level 142 mmol/L (136-145)
[2019-04-21 08:57] VITALS: BP 150/78; PULSE 96; RESP 22; TEMP 37; O2SAT 99
[2019-04-21 09:00] VITALS: BP 150/78; PULSE 96; RESP 22; TEMP 37; O2SAT 99
[2019-04-21 09:42] VITALS: RESP 16
--- NOTE | 2019-04-21 09:43 | NURSING ---
Pt states he had a black Tarry stool today after Dr. Betancourt saw him this morning. This nurse aware and informed patient and of HGB of 7.5 this morning. IVF was stopped per order. Dr. Betancourt texted via [employer] to inform of black, Tarry Stool and hgb 7.5
[2019-04-21] MEDS: Pantoprazole Sodium 20 MG Tablet PO (10:59)
[2019-04-21 12:55] LABS: Hematocrit 25.7 % (40-54); Hemoglobin 8.3 g/dL (13.0-16.5)
[2019-04-21 13:03] VITALS: BP 150/76; PULSE 97; RESP 18; TEMP 36.6; O2SAT 100
--- NOTE | 2019-04-21 13:18 | DCINST_ITS ---
- Discharge Diagnoses Current Active Problems: Current Active and Chronic Problems (Last Reviewed 12/28/17 @ 10:08 by Nicol Eagle) GI bleed (Acute) You will use the following diet at home:: Regular Your food should be the consistency of: Regular Your liquids should be the consistency of: Regular/Thin Discharge Activity: Return to Normal Activity Call your doctor if your incision/area has: Sudden Increased Bleeding Call your doctor if you observe: Fever of 101 or Higher, Shortness of breath, Dizziness Allergies/Adverse Reactions: Allergies No Known Allergies Allergy (Verified 04/20/19 10:05) Medications to take at Discharge Omeprazole 20 mg PO BID 30 Days #60 tablet. 04/21/19 Sucralfate [Carafate] 1 gm PO 1HR_ACHS 30 Days #120 tab 04/21/19 The following prescriptions were given: Sucralfate [Carafate] 1 gm PO 1HR_ACHS 30 Days #120 tab Transmission Status: Pending to [facility] Omeprazole 20 mg PO BID 30 Days #60 tablet. Transmission Status: Pending to [facility] Primary Care Physician: Rishabh Barba MD [Primary Care Provider] - Test Results: Test results from this visit will be discussed in further detail at your follow- up appointment, if applicable. Please Follow Up With: Tam Betancourt MD When: Call to make 2 week follow up appt [phone]
--- NOTE | 2019-04-21 13:31 | NURSING ---
Aware of Vital Signs taken recently by [facility] Speech And Language Assistant
[2019-04-23 10:33] LABS: Gastrin, Serum 73 pg/mL (0-115)
== END 2019-04-21 12:20 | disposition home or self-care (01) ==
LOC: ED 09:26 → MS2 09:54 → MS3 12:09
PROVIDERS: Admitting Provider Surgery; Emergency Provider Emergency Medicine; Family Provider Family Medicine; PCP Family Medicine; Referring Provider Surgery; Visit Provider Surgery
PROC: 0DJ08ZZ Inspection of Upper Intestinal Tract, Via Natural or Artificial Opening Endoscopic (ICD-10-PCS; CPT 43235; principal; 2019-04-20 09:55)
DX: K25.9 Gastric ulcer, unspecified as acute or chronic, without hemorrhage or perforation (principal); K92.1 Melena; Z86.2 Personal history of diseases of the blood and blood-forming organs and certain disorders involving the immune mechanism; Z87.891 Personal history of nicotine dependence; K44.9 Diaphragmatic hernia without obstruction or gangrene
CPT/HCPCS: 43239; 36415; 80048; 82274; 82941; 83605; 85014; 85018; 85025; 86850; 86900; 86901; 88305; 88342; 96361; 96365; 96366; 99218; 99285; J7030; J7120; A4216; G0378

== ENCOUNTER → 2019-05-04 12:26 | Outpatient (CLI) | payer OTHER, SELFPAY ==
[2019-04-20 12:25] VITALS: BMI 33.6
[2019-05-04 12:54] LABS: Hematocrit 27.2 % (40-54); Hemoglobin 8.5 g/dL (13.0-16.5); Mean Corp Hgb Conc 31.3 g/dL (32-36); Mean Corpuscular Hgb 26.7 pg (27.0-32.0); Mean Corpuscular Volume 85.5 fL (80-94); Mean Platelet Vol. 9.1 fl (6.2-12.0); Platelet Count 361 K/mm3 (150-450); RBC Distribution Width CV 14.4 % (11.6-14.6); RBC Distribution Width SD 45.1 fl (35.1-43.9); Red Blood Count 3.18 M/mm3 (4.6-6.2); White Blood Count 5.7 K/mm3 (4.4-11.0)
== END ==
PROVIDERS: Family Provider Family Medicine; PCP Family Medicine; Referring Provider Surgery; Visit Provider Surgery
DX: D64.9 Anemia, unspecified (principal)
CPT/HCPCS: 36415; 85027

== ENCOUNTER → 2019-12-26 09:00 | Outpatient (CLI) | payer OTHER, SELFPAY ==
[2019-12-22 14:33] VITALS: BMI 33.5
--- NOTE | 2019-12-26 09:02 | CDU_ITS ---
Reason For Study: left facial numbness Rt. Velocities/BP Lt. Velocities/BP Prox CCA 91.7/18.6 cm/sec. Prox CCA 109.6/21.2 cm/sec. Mid CCA 106.0/29.1 cm/sec. Mid CCA 104.7/24.9 cm/sec. Dist CCA 91.7/26.5 cm/sec. Dist CCA 96.1/28.6 cm/sec. Prox ICA 76.5/22.5 cm/sec. Prox ICA 154.0/46.2 cm/sec. Mid ICA 96.1/37.2 cm/sec. Mid ICA 175.9/31.6 cm/sec. Dist ICA 88.8/34.8 cm/sec. Dist ICA 133.9/35.3 cm/sec. Rt. ICA/CCA = .9. Lt. ICA/CCA = 1.7. Prox ECA 190.5/37.1 cm/sec. Prox ECA 170.4/37.9 cm/sec. Rt. Vert. 49.5/16.3 cm/sec. Lt. Vert. 64.1/20.0 cm/sec. Right Extracranial There is homogeneous, smooth atherosclerotic plaque noted in the right common carotid artery. There is heterogeneous, irregular atherosclerotic plaque noted in the right internal carotid artery. There is homogeneous, smooth atherosclerotic plaque noted in the right external carotid artery. Antegrade flow is noted in the right vertebral artery. Left Extracranial There is homogeneous, smooth atherosclerotic plaque noted in the left common carotid artery. There is heterogeneous, irregular atherosclerotic plaque noted in the left internal carotid artery. There is homogeneous, smooth atherosclerotic plaque noted in the left external carotid artery. Antegrade flow is noted in the left vertebral artery. Procedure Carotid Duplex 42668. The exam was diagnostic. Exam performed in department. Interpretation Summary Minimal irregular plaque at the proximal right internal carotid artery <50% stenosis right internal carotid <50% stenosis right external carotid Calcific plaque with shadowing at the proximal and mid left internal carotid artery 50-69% stenosis left internal carotid <50% stenosis left external carotid Patent, antegrade vertebrals bilaterally Ordering Physician: Tam Betancourt Performed By: Daryl Lu RVT
== END ==
PROVIDERS: PCP Family Medicine; Referring Provider Surgery; Visit Provider Surgery
DX: R20.0 Anesthesia of skin (principal)
CPT/HCPCS: 93880

== ENCOUNTER → 2020-01-01 08:22 | Outpatient (CLI) | payer OTHER, SELFPAY ==
[2019-12-22 14:33] VITALS: BMI 33.5
== END ==
PROVIDERS: PCP Family Medicine; Referring Provider Surgery; Visit Provider Surgery
DX: D64.9 Anemia, unspecified (principal); K92.2 Gastrointestinal hemorrhage, unspecified
CPT/HCPCS: 82274

== ENCOUNTER → 2020-01-05 13:27 | Outpatient (CLI) | payer OTHER, SELFPAY ==
[2020-01-05 13:06] VITALS: BMI 33.5
[2020-01-05 13:58] LABS: Hematocrit 45.5 % (40-54); Hemoglobin 14.7 g/dL (13.0-16.5)
== END ==
PROVIDERS: PCP Family Medicine; Referring Provider Surgery; Visit Provider Surgery
DX: D64.9 Anemia, unspecified (principal); K92.2 Gastrointestinal hemorrhage, unspecified
CPT/HCPCS: 36415; 85014; 85018

== ENCOUNTER 2020-10-10 16:25 | Outpatient (RCR) | payer OTHER, SELFPAY ==
[2020-01-05 13:06] VITALS: BMI 33.5
[2020-10-10] MEDS: COVID-19 VACC, MRNA(PFIZER)/PF 30 MCG/0.3 ML SYRINGE IM (17:11)
[2020-10-31] MEDS: COVID-19 VACC, MRNA(PFIZER)/PF 30 MCG/0.3 ML SYRINGE IM (17:00)
== END 2021-01-07 23:59 ==
LOC: IMMUN 16:25
PROVIDERS: PCP Family Medicine; Visit Provider Family Medicine
DX: Z23 Encounter for immunization (principal)
CPT/HCPCS: 0001A; 0002A; 91300

== ENCOUNTER → 2020-12-26 12:38 | Outpatient (CLI) | payer OTHER, SELFPAY ==
[2020-01-05 13:06] VITALS: BMI 33.5
--- NOTE | 2020-12-26 12:40 | CDU_ITS ---
Reason For Study: carotid stenosis Rt. Velocities/BP Lt. Velocities/BP Prox CCA 99.5/23.9 cm/sec. Prox CCA 110.1/20.6 cm/sec. Mid CCA 85.2/22.6 cm/sec. Mid CCA 66.7/11.4 cm/sec. Dist CCA 76.0/21.3 cm/sec. Dist CCA 75.3/18.8 cm/sec. Prox ICA 102.8/31.6 cm/sec. Prox ICA 223.5/68.1 cm/sec. Mid ICA 79.0/28.6 cm/sec. Mid ICA 197.6/55.2 cm/sec. Dist ICA 92.5/32.3 cm/sec. Dist ICA 119.3/35.3 cm/sec. Rt. ICA/CCA = 1.2. Lt. ICA/CCA = 3.4. Prox ECA 165.2/18.2 cm/sec. Prox ECA 223.5/31.9 cm/sec. Rt. Vert. 43.3/12.6 cm/sec. Right Extracranial There is homogeneous, smooth atherosclerotic plaque noted in the right common carotid artery. There is heterogeneous, irregular atherosclerotic plaque noted in the right internal carotid artery. There is homogeneous, smooth atherosclerotic plaque noted in the right external carotid artery. Antegrade flow is noted in the right vertebral artery. Left Extracranial There is homogeneous, smooth atherosclerotic plaque noted in the left common carotid artery. There is heterogeneous, irregular atherosclerotic plaque noted in the left internal carotid artery. There is homogeneous, smooth atherosclerotic plaque noted in the left external carotid artery. Antegrade flow is noted in the left vertebral artery. Procedure Carotid Duplex [id number]. This is a Carotid Duplex examination using B-mode, color flow and specral Doppler. The exam was diagnostic. Exam performed in department. VL/Carotid Duplex Ultrasound Interpretation Summary Irregular calcific plaque of the proximal right internal carotid artery with le ss than 50% stenosis Less than 50% stenosis right external carotid artery Irregular calcific plaque with shadowing at the proximal left internal carotid artery with 50 to 69% stenosis though likely closer to the upper limits of that range. Greater than 50% stenosis left external carotid artery Patent and antegrade bilateral vertebrals Absolute velocity findings suggest progression of disease left internal carotid from the previous examination of December 26, 2019 when the maximum peak systolic velocity within the left internal carotid was 175 cm/s flow. Ordering Physician: Avery Cortes Performed By: Daryl Lu RVT
== END ==
PROVIDERS: PCP Family Medicine; Referring Provider Surgery; Visit Provider Surgery
DX: I65.23 Occlusion and stenosis of bilateral carotid arteries (principal)
CPT/HCPCS: 93880

== ENCOUNTER → 2021-01-09 10:53 | Outpatient (CLI) | payer OTHER, SELFPAY ==
[2020-01-05 13:06] VITALS: BMI 33.5
[2021-01-09 12:02] LABS: Absolute Lymphocyte Count 1.66 X10^3/uL (0.83-4.51); Absolute Neutrophil Count 3.1 X10^3/uL (2.0-7.7); Basophil# 0.04 X10^3/uL; Basophil% 0.7 % (0-1); Eosinophil# 0.12 X10^3/uL; Eosinophils% 2.1 % (0-5); Hematocrit 44.1 % (40-54); Hemoglobin 14.5 g/dL (13.0-16.5); Lymphocyte # 1.66 X10^3/ul (0.83-4.51); Lymphocyte % 29.6 % (19-41); Mean Corp Hgb Conc 32.9 g/dL (32-36); Mean Corpuscular Hgb 30.1 pg (27.0-32.0); Mean Corpuscular Volume 91.7 fL (80-94); Mean Platelet Vol. 9.9 fl (6.2-12.0); Monocyte# 0.69 X10^3/uL; Monocyte% 12.3 % (0-10); NRBC Flagged by Analyzer 0 % (0-5); Neutrophil # 3.07 X10^3/uL (2.7-7.7); Neutrophil % 54.9 % (47-70); Platelet Count 244 K/mm3 (150-450); RBC Distribution Width CV 12.6 % (11.6-14.6); RBC Distribution Width SD 42.5 fl (35.1-43.9); Red Blood Count 4.81 M/mm3 (4.6-6.2); White Blood Count 5.6 K/mm3 (4.4-11.0)
[2021-01-09 12:21] LABS: Microalbumin,Random Urine 14.6 mg/L (NO RANGE EST.); Microalbumin:Creatinine Ratio 10.7 mg/g CRE (<30 mg/g CRE)
[2021-01-09 12:36] LABS: ALB/GLOB Ratio 1.1 RATIO (0.9-2.4); AST(SGOT) 22 U/L (15-37); Alanine Aminotransfer ALT/SGPT 47 U/L (16-61); Albumin, Serum 3.8 g/dL (3.2-5.0); Alkaline Phosphatase 91 U/L (45-117); Anion Gap 2 (5-15); BUN 15 mg/dL (7-18); BUN/Creat Ratio 16.4 RATIO (10-20); Calcium,Total 9.1 mg/dL (8.5-10.1); Chloride 107 mmol/L (98-107); Cholesterol 156 mg/dL (200); Creatinine, Serum 0.92 mg/dL (0.70-1.30); EST Glomerular Filtration Rate 88 mL/min (>60); Est Glom Filt Rate - Afr Amer 107 mL/min (>60); Globulin 3.5 g/dL (2.2-4.2); Glucose 89 mg/dL (74-106); High Density Lipoprotein 41 mg/dL; Potassium 4.6 mmol/L (3.5-5.1); Protein, Total 7.3 g/dL (6.4-8.2); Sodium Level 139 mmol/L (136-145); Thyroid Stim Hormone (TSH) 2.31 uIU/mL (0.358-3.74); Triglycerides 103 mg/dL; Very Low Density Lipoprotein 21 mg/dL (5-40)
== END ==
PROVIDERS: PCP Family Medicine; Referring Provider Family Medicine; Visit Provider Family Medicine
DX: I70.90 Unspecified atherosclerosis (principal); R03.0 Elevated blood-pressure reading, without diagnosis of hypertension
CPT/HCPCS: 36415; 80053; 80061; 82043; 82570; 84443; 85025

== ENCOUNTER → 2021-01-17 14:54 | Outpatient (CLI) | payer OTHER, SELFPAY ==
[2021-01-13 05:49] VITALS: BMI 33.8
--- NOTE | 2021-01-17 14:59 | CT_ITS ---
STUDY: LOW DOSE CT LUNG CANCER SCREENING REASON FOR EXAM: Male, 65 years old. TOBACCO USE. The patient smoked 1 pack per day for 40 years. The patient quit smoking 5 years ago. RADIATION DOSAGE (If Supplied By Facility): CTDIvol = ( 4.02 ) mGy, DLP = ( 124.86 ) mGycm TECHNIQUE: No contrast was administered. Low dose technique was utilized (average mAS-38 and kVp 120). 1.25 mm axial source images with a slice interval of 1.25-mm were reconstructed in lung windows. 2.5 mm axial source images with a slice interval of 2.5-mm were reconstructed in lung windows. 5.0 mm axial source images with a slice interval of 5.0-mm were reconstructed in soft tissue windows. Nodule measured using lung windows on PACS and/or independent workstation with automated measurement of minimum and maximum diameter. Nodule measurement reported as average diameter rounded to the nearest whole number. Growth is defined as an increase ins size of greater than 1.5 mm. COMPARISON: None. NODULES: Tiny calcified granulomas in the right upper lobe. Emphysema: Hyperinflation. Mild degree of emphysematous changes. Endobronchial lesion: None Aorta: Atherosclerotic plaques of the aortic arch. Coronary arteries: Coronary artery calcification. Heart: Pulmonary artery: Mediastinal nodes: Small benign appearing mediastinal lymph nodes. Other chest and abdominal findings: Moderate sized hiatal hernia. CT/Low Dose CT Lung Screening IMPRESSION: Lung-RADS category 2 - Continue annual screening with LDCT in 12 months. IMPORTANT NOTES FOR USE: ACR Lung-RADS Version 1.1 Assessment Categories Release Date: 2018 Category: Coded 0-4 bases on nodule(s) with highest degree of suspicion. Negative screen is defined as categories 1 and 2; a positive screen is defined as categories 3 and 4. Category 3 and 4A nodules that are unchanged on interval CT should be coded as category 2, and individuals returned to screening in 12 months. Category 4X: Category 3 or 4 nodules with additional imaging findings that increase the suspicion of lung cancer, such as spiculation, GGN that doubles in size in 1 year, enlarged lymph notes, etc. Category Modifiers: S (significant finding unrelated to lung cancer) Electronically Signed: Chidi Arteaga MD at 15:22 EDT , Service support ,
== END ==
PROVIDERS: PCP Family Medicine; Referring Provider Family Medicine; Visit Provider Family Medicine
DX: Z12.2 Encounter for screening for malignant neoplasm of respiratory organs (principal); Z87.891 Personal history of nicotine dependence
CPT/HCPCS: 71271

== ENCOUNTER → 2021-07-15 07:57 | Outpatient (CLI) | payer OTHER, SELFPAY ==
--- NOTE | 2021-07-15 08:01 | CDU_ITS ---
Reason For Study: carotid stenosis Rt. Velocities/BP Lt. Velocities/BP Prox CCA 76.0/13.4 cm/sec. Prox CCA 128.1/23.7 cm/sec. Mid CCA 109.9/25.2 cm/sec. Mid CCA 101.1/23.7 cm/sec. Dist CCA 94.3/27.8 cm/sec. Dist CCA 82.6/18.8 cm/sec. Prox ICA 117.4/29.8 cm/sec. Prox ICA 103.8/24.8 cm/sec. Mid ICA 119.5/24.9 cm/sec. Mid ICA 265.0/52.6 cm/sec. Dist ICA 94.9/31.1 cm/sec. Dist ICA 189.9/31.9 cm/sec. Rt. ICA/CCA = 1.1. Lt. ICA/CCA = 2.6. Prox ECA 179.5/34.5 cm/sec. Prox ECA 211.4/29.2 cm/sec. Rt. Vert. 58.1/13.9 cm/sec. Lt. Vert. 40.9/13.9 cm/sec. Right Extracranial There is homogeneous, smooth atherosclerotic plaque noted in the right common carotid artery. There is heterogeneous, irregular atherosclerotic plaque noted in the right internal carotid artery. There is homogeneous, smooth atherosclerotic plaque noted in the right external carotid artery. Antegrade flow is noted in the right vertebral artery. Left Extracranial There is homogeneous, smooth atherosclerotic plaque noted in the left common carotid artery. There is heterogeneous, irregular atherosclerotic plaque noted in the left internal carotid artery. There is homogeneous, smooth atherosclerotic plaque noted in the left external carotid artery. Antegrade flow is noted in the left vertebral artery. Procedure Carotid Duplex [id number]. This is a Carotid Duplex examination using B-mode, color flow and specral Doppler. The exam was diagnostic. Exam performed in department. VL/Carotid Duplex Ultrasound Interpretation Summary Irregular calcific plaque at the proximal right internal carotid artery with le ss than 50% stenosis but close to that range. Less than 50% stenosis right external carotid artery Irregular calcific plaque of the proximal left internal carotid artery with sha dowing. Greater than 70% stenosis left internal carotid artery. Greater than 50% stenosis left external carotid artery Patent and antegrade vertebral arteries bilaterally Slight progression of disease left internal carotid artery from the previous ex amination of December 26, 2020 Ordering Physician: Avery Cortes Performed By: Daryl Lu RVT
== END ==
PROVIDERS: PCP Family Medicine; Referring Provider Surgery; Visit Provider Surgery
DX: I65.29 Occlusion and stenosis of unspecified carotid artery (principal)
CPT/HCPCS: 93880

== ENCOUNTER → 2021-07-15 09:00 | Outpatient (CLI) | payer OTHER, SELFPAY ==
[2021-07-15 10:41] LABS: PSA,Total - Annual Screen 0.36 ng/mL (0.00-4.00)
== END ==
PROVIDERS: PCP Family Medicine; Visit Provider Family Medicine
DX: Z12.5 Encounter for screening for malignant neoplasm of prostate (principal)
CPT/HCPCS: 36415; 84153; G0103

== ENCOUNTER → 2021-07-29 15:48 | Outpatient (CLI) | payer OTHER, SELFPAY ==
--- NOTE | 2021-07-29 15:55 | CT_ITS ---
STUDY: CTA NECK WITH CONTRAST REASON FOR EXAM: Male, 66 years old. Carotid stenosis RADIATION DOSAGE (If Supplied By Facility): CTDIvol = ( 19.96 ) mGy, DLP = ( 663.44 ) mGycm TECHNIQUE: CT angiography with multi-detector data acquisition was performed from the aortic arch to the skull base following intravenous administration of IV 100mL Isovue-370. MIP images were reconstructed from the axial data set. Post-processing of the angiographic images was performed, with multiplanar reformation and 3D reconstruction. Individualized dose optimization techniques were used for this CT. COMPARISON: Ultrasound July 15 2021 FINDINGS: Aortic arch has a normal branching pattern. Right brachycephalic, right subclavian, right common carotid, left common carotid and left subclavian arteries are patent. Right carotid has lipid rich atherosclerotic plaque at the origin producing low-grade, less than 30% stenosis. Remainder of the cervical segment is patent. Left internal carotid has a large predominantly lipid rich plaque with more peripheral linear calcifications along 270 degrees of circumference producing high-grade, greater than 85% stenosis. Patent lumen measures 1 mm in diameter. Remainder of the cervical ICA is patent. Vertebral arteries are codominant, patent and arise bilaterally from the subclavian arteries. [place] of [place] is patent. Posterior communicating arteries are not seen. Soft tissues are normal. Cervical spine is intact and aligned. Lung apices are emphysematous. CT/CTA Neck W/WO Contrast IMPRESSION: 1. High-grade, greater than 85%, left proximal ICA short segment stenosis due to predominantly lipid rich plaque. 2. Low-grade right ICA stenosis. Electronically Signed: Anuel Blakely MD at 21:58 EST Tel , Service support ,
[2021-07-29 16:15] LABS: CREATININE FINGERSTICK 1.1 mg/dL (0.70-1.30); EGFR FINGERSTICK > 60.0000 mL/min (>60)
== END ==
PROVIDERS: PCP Family Medicine; Referring Provider Surgery; Visit Provider Surgery
DX: I65.22 Occlusion and stenosis of left carotid artery (principal)
CPT/HCPCS: 70498; Q9967

== ENCOUNTER 2021-08-06 12:49 | Outpatient (CLI) | payer OTHER, SELFPAY ==
[2021-08-06 13:13] LABS: Absolute Lymphocyte Count 1.31 X10^3/uL (0.83-4.51); Absolute Neutrophil Count 3.6 X10^3/uL (2.0-7.7); Basophil# 0.03 X10^3/uL; Basophil% 0.5 % (0-1); Eosinophil# 0.07 X10^3/uL; Eosinophils% 1.2 % (0-5); Hematocrit 41.6 % (40-54); Hemoglobin 14.3 g/dL (13.0-16.5); Lymphocyte # 1.31 X10^3/ul (0.83-4.51); Lymphocyte % 22.5 % (19-41); Mean Corp Hgb Conc 34.4 g/dL (32-36); Mean Corpuscular Hgb 30.2 pg (27.0-32.0); Mean Corpuscular Volume 87.8 fL (80-94); Mean Platelet Vol. 9.2 fl (6.2-12.0); Monocyte# 0.75 X10^3/uL; Monocyte% 12.9 % (0-10); NRBC Flagged by Analyzer 0 % (0-5); Neutrophil # 3.64 X10^3/uL (2.7-7.7); Neutrophil % 62.7 % (47-70); Platelet Count 256 K/mm3 (150-450); RBC Distribution Width CV 12.6 % (11.6-14.6); RBC Distribution Width SD 41.1 fl (35.1-43.9); Red Blood Count 4.74 M/mm3 (4.6-6.2); White Blood Count 5.8 K/mm3 (4.4-11.0)
[2021-08-06 13:56] LABS: Anion Gap 8 (5-15); BUN 15 mg/dL (7-18); BUN/Creat Ratio 15.2 RATIO (10-20); Chloride 106 mmol/L (98-107); Creatinine, Serum 0.98 mg/dL (0.70-1.30); EST Glomerular Filtration Rate 81 mL/min (>60); Est Glom Filt Rate - Afr Amer 98 mL/min (>60); Glucose 104 mg/dL (74-106); Potassium 4.3 mmol/L (3.5-5.1); Sodium Level 138 mmol/L (136-145)
== END 2021-08-06 23:59 | disposition short-term general hospital (02) ==
LOC: PAVLAB 12:50
PROVIDERS: PCP Family Medicine; Referring Provider Surgery; Visit Provider Surgery
DX: Z01.812 Encounter for preprocedural laboratory examination (principal)
CPT/HCPCS: 36415; 80048; 85025

== ENCOUNTER 2021-08-14 05:29 | Inpatient (IN) | payer OTHER, MEDICARE, SELFPAY ==
--- NOTE | 2021-08-13 11:20 | EKG12_ITS ---
Test Reason : PRE OP Blood Pressure : / mmHG Vent. Rate : 065 BPM Atrial Rate : 065 BPM P-R Int : 160 ms QRS Dur : 082 ms QT Int : 382 ms P-R-T Axes : 006 039 056 degrees QTc Int : 397 ms Normal sinus rhythm Normal ECG Confirmed by JAJA AKINS, ILEANA ([id number]), editorial cartoonist HARISH CUTLER ([id number]) on 08/14/2021 7:52:30 AM Referred By: Avery Cortes Confirmed By:ILEANA WILKINSON MD
[2021-08-14] VITALS (22 sets, daily range): BP systolic 101–180; BP diastolic 49–86; PULSE 68–86; RESP 14–18; TEMP 35.7–36.9; O2SAT 90–100; BMI 33.2
--- NOTE | 2021-08-14 | PLAQ_PTH ---
PATIENT: BONG CHATTERJEE LOC: MS2 U#:[id number] AGE/SX: 66/M ROOM: [facility] RE08/14/[address]: Dr. Avery Cortes MD : 1955 BED: 1 DIS: 08/15/2021 SPEC #: [id number] RECD: 08/14/21 13:26 STATUS: GIBSON REPaulina #: [id number] KUMAR: 08/14/21 00:[address]: Avery Cortes DEPT: SURGICAL PATHOLOGY RECD BY: Jovon Rae ENTERED: 08/14/21 13:26 SP TYPE: PLAQUE OTHR DR: Dr. Jamey Pabon MD Tissues: PLAQUE Procedures: Decalcification bone/plaque Surgery Specimen Level III HEADER OPERATION: Carotid endarterectomy with patch angioplasty and arterial PRE-OP DIAGNOSIS: Left carotid stenosis TISSUE SUBMITTED: Left carotid plaque MICROSCOPIC DIAGNOSIS Left carotid plaque, endarterectomy: Calcified atheromatous plaque with focal chronic inflammation consistent with severe stenosis. AM:brie 08/20/2021 GROSS DESCRIPTION Received in fixative is one container labeled with the patient's name and designated left carotid plaque. The specimen consists of an irregular fragment of gritty, yellow-white tissue measuring 2 x 1 x 1 cm. The specimen is serially sectioned and totally submitted in one cassette after decalcification. / SJ:brie 08/14/2021 TC:5 CPT: 28031, 64455
--- NOTE | 2021-08-14 05:45 | PCM.HP.BLA ---
History and Physical Date of Admission: 08/14/21 Visit Reasons: F/U CT Results 07/29 Chief Complaint: F/U CT results 07/29 Business Travel Consultant Required: No Is patient in pain?: No Allergies No Known Allergies Allergy (Verified 08/06/21 12:10) Medications pantoprazole 20 mg tablet,delayed release 20 mg PO DAILY tab 01/13/21 [History Confirmed 08/06/21] aspirin 81 mg tablet,delayed release 81 mg PO DAILY 07/21/21 [History Confirmed 08/06/21] metoprolol tartrate 25 mg tablet 12.5 mg PO BID #28 tab 08/06/21 [Rx Confirmed 08/06/21] PFSH Medical History Anemia BMI 31.0-31.9,adult Carotid stenosis Gastric ulcer GERD (gastroesophageal reflux disease) NSAID induced gastritis Surgical History History of esophagogastroduodenoscopy (EGD) Normal colonoscopy Social History Smoking Status: Never smoker HPI HPI HPI: BONG CHATTERJEE, is a 66 M who presents to the office today for ongoing surgical follow-up regarding progressive left extracranial carotid artery stenosis. The patient has had some episodes where he still felt fatigued possibly slightly dizzy or woozy. No focal motor or sensory loss. He has had a history of upper GI bleed that was secondary to nonsteroidal anti-inflammatory agents. As noted below he had a CTA of the neck on July 29. This demonstrates greater than 85% stenosis of the left internal carotid artery. He has been evaluated by his primary care physician Dr. Jamey Pabon and the patient has been initiated on a statin medication. July 29, 2021 STUDY: CTA NECK WITH CONTRAST REASON FOR EXAM: Male, 66 years old. Carotid stenosis RADIATION DOSAGE (If Supplied By Facility): CTDIvol = ( 19.96 ) mGy, DLP = ( 663.44 ) mGycm TECHNIQUE: CT angiography with multi-detector data acquisition was performed from the aortic arch to the skull base following intravenous administration of IV 100mL Isovue-370. MIP images were reconstructed from the axial data set. Post-processing of the angiographic images was performed, with multiplanar reformation and 3D reconstruction. Individualized dose optimization techniques were used for this CT. COMPARISON: Ultrasound July 15 2021 FINDINGS: Aortic arch has a normal branching pattern. Right brachycephalic, right subclavian, right common carotid, left common carotid and left subclavian arteries are patent. Right carotid has lipid rich atherosclerotic plaque at the origin producing low-grade, less than 30% stenosis. Remainder of the cervical segment is patent. Left internal carotid has a large predominantly lipid rich plaque with more peripheral linear calcifications along 270 degrees of circumference producing high-grade, greater than 85% stenosis. Patent lumen measures 1 mm in diameter. Remainder of the cervical ICA is patent. Vertebral arteries are codominant, patent and arise bilaterally from the subclavian arteries. [place] is patent. Posterior communicating arteries are not seen. Soft tissues are normal. Cervical spine is intact and aligned. Lung apices are emphysematous. CT/CTA Neck W/WO Contrast IMPRESSION: 1. High-grade, greater than 85%, left proximal ICA short segment stenosis due to predominantly lipid rich plaque. 2. Low-grade right ICA stenosis. Electronically Signed: Anuel Blakely MD at 21:58 EST Tel , Service support , My previous notes reflect the following Intake Visit Reasons: CAROTID US F/U 12/26 Chief Complaint: carotid stenosis Business Travel Consultant Required: No Is patient in pain?: No Allergies No Known Allergies Allergy (Verified 01/13/21 15:15) Medications pantoprazole 20 mg tablet,delayed release 20 mg PO DAILY tab 01/13/21 [History Confirmed 01/13/21] [facility] Medical History Anemia BMI 31.0-31.9,adult Carotid stenosis Gastric ulcer GERD (gastroesophageal reflux disease) NSAID induced gastritis Surgical History History of esophagogastroduodenoscopy (EGD) Normal colonoscopy Social History Smoking Status: Never smoker HPI HPI HPI: BONG CHATTERJEE, is a 65 M who presents to the office today for Surgical consultation regarding carotid stenosis and brief episode of right numbness. The patient is referred by Dr. Jamey Pabon and Dr. Tam Betancourt. A written copy of my surgical consult will be returned to Dr. Pabon. The patient has been seen previously by Dr. Betancourt for NSAID induced acute gastritis with multiple ulcerations. He was not felt to be in need of a follow-up endoscopy at this time. There was concerns about the episode of right sided numbness. It was recommended the patient be consideration for statin medication and antiplatelet agent. This decision was referred back to Dr. Jamey Pabon. The episode that the patient had was when he was laying on his abdomen watching TV. He states that his right arm and leg both went numb. He states that his mentation was clear his speech was clear he got up off the floor off his abdomen and within 5 minutes the symptoms were gone. He had been a long-term cigarette smoker. He claims he quit 5 years ago. He states he has never had a cardiac stress test. He is able to climb a flight of stairs but gets slightly short winded. He states that he has had a significant amount of weight gain since he stopped smoking. His current weight is 242 pounds. He states that he has never had cholesterol problems. He denies hypertension myocardial infarction documented stroke or diabetes. He is not currently on a statin medication nor is he on aspirin therapy. It is of note that the patient has had an NSAID related upper GI bleed with multiple gastric ulcers. Dr. Betancourt assisted him during that situation. The patient is treated with maintenance pantoprazole He has had an updated carotid duplex exam December 26, 2020 as noted below. This demonstrates slight progression of disease on the left when previously his peak systolic flow within the internal carotid was 175 cm/s and currently is 223 cm second peak stenotic flow. As noted he remains asymptomatic My understanding is that he does not have hyperlipidemia December 26, 2020 Reason For Study: carotid stenosis Rt. Velocities/BP Lt. Velocities/BP Prox CCA 99.5/23.9 cm/sec. Prox CCA 110.1/20.6 cm/sec. Mid CCA 85.2/22.6 cm/sec. Mid CCA 66.7/11.4 cm/sec. Dist CCA 76.0/21.3 cm/sec. Dist CCA 75.3/18.8 cm/sec. Prox ICA 102.8/31.6 cm/sec. Prox ICA 223.5/68.1 cm/sec. Mid ICA 79.0/28.6 cm/sec. Mid ICA 197.6/55.2 cm/sec. Dist ICA 92.5/32.3 cm/sec. Dist ICA 119.3/35.3 cm/sec. Rt. ICA/CCA = 1.2. Lt. ICA/CCA = 3.4. Prox ECA 165.2/18.2 cm/sec. Prox ECA 223.5/31.9 cm/sec. Rt. Vert. 43.3/12.6 cm/sec. Right Extracranial There is homogeneous, smooth atherosclerotic plaque noted in the right common carotid artery. There is heterogeneous, irregular atherosclerotic plaque noted in the right internal carotid artery. There is homogeneous, smooth atherosclerotic plaque noted in the right external carotid artery. Antegrade flow is noted in the right vertebral artery. Left Extracranial There is homogeneous, smooth atherosclerotic plaque noted in the left common carotid artery. There is heterogeneous, irregular atherosclerotic plaque noted in the left internal carotid artery. There is homogeneous, smooth atherosclerotic plaque noted in the left external carotid artery. Antegrade flow is noted in the left vertebral artery. Procedure Carotid Duplex [id number]. This is a Carotid Duplex examination using B-mode, color flow and specral Doppler. The exam was diagnostic. Exam performed in department. VL/Carotid Duplex Ultrasound Interpretation Summary Irregular calcific plaque of the proximal right internal carotid artery with less than 50% stenosis Less than 50% stenosis right external carotid artery Irregular calcific plaque with shadowing at the proximal left internal carotid artery with 50 to 69% stenosis though likely closer to the upper limits of that range. Greater than 50% stenosis left external carotid artery Patent and antegrade bilateral vertebrals Absolute velocity findings suggest progression of disease left internal carotid from the previous examination of December 26, 2019 when the maximum peak systolic velocity within the left internal carotid was 175 cm/s flow. Ordering Physician: Avery Cortes Performed By: Daryl Lu RVSusie General General: Yes weight change and fatigue HEENT HEENT: No difficulty swallowing, eye injury, eye surgery, swollen glands or hoarseness Endo Endocrine: No thyroid disease, diabetes mellitus, thyroid cancer, Hair loss, heat intolerance or cold intolerance Cardio Cardiovascular: No murmur, pacemaker, heart disease, atrial fibrillation, high blood pressure, heart attack, heart stent, palpitations, shortness of breat with exertion or chest pain Psych Psychiatric: No depression, anxiety or hearing voices Resp Respiratory: No shortness of breath, No sleep apnea, No cough, No COPD, No asthma, No emphysema and No wheezing Gastro Gastrointestinal: No abdominal pain, No nausea or vomiting, No diarrhea, No constipation, No blood in stool, Yes acid reflux, No hemorrhoids, No ulcers, No gallbladder problem and No black,tarry stools Alfonso Hematologic: No blood thinners, No blood disorders, No bleeding, No anemia and No blood clots Exam Const General: cooperative, healthy appearing, comfortable and no acute distress Nutritional Appearance: obese Orientation: alert, awake and oriented x3 HENMT Head: normal to inspection Eyes General: appearance normal, both eyes and all related structures Chest Other: Increased anterior posterior diameter Resp Effort & Inspection: normal respiratory effort Auscultation: clear to auscultation bilaterally Cardio Rate: regular rate Rhythm: regular rhythm Other: Bilateral radials 3+, bilateral brachials 3+, bilateral carotids 3+, no carotid bruit Bilateral femorals 3+. Bilateral popliteals 2+ GI Palpation: soft and no hepatosplenomegaly Auscultation: normal bowel sounds and no bruits Musc Cervical Spine: normal cervical lordosis Skin Other: Slight ecchymosis left dorsal wrist Neuro General: CN's II-XI intact bilaterally Extrem General: no calf tenderness bilaterally Psych Appearance: grossly normal Assessment and Plan Assessment and Plan (1) Carotid stenosis: Status: Acute Qualifiers: Laterality: left Qualified Code(s): I65.22 - Occlusion and stenosis of left carotid artery Plan Details Other Orders: Orders: Carotid Duplex Ultrasound 07/12/21 I65.29 Additional Comments: 65-year-old gentleman. Previous history of tobacco use. BMI is currently 33.8. He has slowly progressive asymptomatic left carotid stenosis. He has had significant peptic ulcer disease with GI bleed and is felt not to be a candidate for NSAID or aspirin therapy. He does not have a documented hyperlipidemia according to his report. With the slowly progressive carotid plaque and stenosis however I think consideration for initiating a statin medication is at least a consideration. I will defer this to Dr. Jamey Pabon. I have instructed the patient regarding risk features. Fortunately he has ceased his tobacco use. He does try to walk several times per week. He does recognize that he has gained weight since the tobacco cessation. He does not particularly abide by a heart healthy/vascular healthy diet. We discussed dietary choices and I recommended to him that he consider the Mediterranean diet. He has had an opportunity to ask and have questions answered. He will continue to follow-up with Dr. Jamey Pabon regarding maximization of his medical care. Because of the slight progression on carotid duplex imaging I do recommend follow-up carotid duplex at 6 months and surgical follow-up. He has had an opportunity to ask and have questions answered. I appreciate the opportunity of assisting with his surgical care. Daughter is Yanira Oneil Copy: Dr. Jamey Cortes M.D., F.A.C.S. ROS General General: Yes weight change and fatigue HEENT HEENT: No difficulty swallowing, eye injury, eye surgery, swollen glands or hoarseness Endo Endocrine: No thyroid disease, diabetes mellitus, thyroid cancer, Hair loss, heat intolerance or cold intolerance Cardio Cardiovascular: No murmur, pacemaker, heart disease, atrial fibrillation, high blood pressure, heart attack, heart stent, palpitations, shortness of breat with exertion or chest pain Psych Psychiatric: No depression, anxiety or hearing voices Resp Respiratory: No shortness of breath, No sleep apnea, No cough, No COPD, No asthma, No emphysema and No wheezing Gastro Gastrointestinal: No abdominal pain, No nausea or vomiting, No diarrhea, No constipation, No blood in stool, Yes acid reflux, No hemorrhoids, No ulcers, No gallbladder problem and No black,tarry stools Alfonso Hematologic: No blood thinners, No blood disorders, No bleeding, No anemia and No blood clots Assessment and Plan Assessment and Plan (1) Carotid stenosis, left: Status: Acute Plan - Dr. Avery Cortes MD: I recommended the patient a left carotid enterectomy with bovine patch angioplasty and have discussed technique, benefit, risk and alternatives. He has had an opportunity to ask and have questions answered. His blood pressure was quite elevated today at 202/120. I will initiate him on a very low-dose antihypertensive of metoprolol 12.5 mg orally twice daily. He will have his blood pressure checked daily at home. Hopefully we can just utilize this leading up to his operation and he did have to try to avoid ICU care postoperatively Elective cases are being held at the [facility] secondary to COVID-19. We have been able to obtain a exemption for him. Anticipate proceeding with surgical intervention next week. We have discussed the technique benefit risk complications alternatives. We compared and contrasted to carotid artery stenting. We discussed preoperative placement of an arterial line. No guarantees of success have been offered. We have discussed that patient behavior with diet and exercise etc. postoperatively will be recommended. He has had an opportunity to ask and have questions answered. We will schedule proceed as noted. I appreciate the opportunity of assisting with surgical care Copy: Dr. Jamey Cortes M.D., F.A.C.S. I have re-examined the patient. There are no clinical changes since date of exam.
--- NOTE | 2021-08-14 05:46 | DCINST_ITS ---
Discharge Instructions Diet Discharge Diet: Light diet - advance as tolerated Activity Discharge Activity: May Not Drive (For 5 to 7 days), May Not Shower (For 3 days) and May Take a Tub Bath Weight Bearing Status: Full weight bearing Dressing / Incision Call your doctor if your incision/area has: Continuous Slow Oozing, Sudden Increased Bleeding and Increased Pain/ Swelling Call your doctor if you observe: Fever of 101 or Higher Suture Line Care: Avoid Pulling/Pushing Change Dressing in: 1 day (You may apply a dry gauze cover dressing to your incision as needed to protect from clothing irritation. Change as needed) Remove Dressing in: 1 week (Leave your Steri-Strips in place for 1 week then you may remove) Follow Up Care Please Follow Up With: Avery Cortes MD When: Approximately 10 days. Please call [phone] to arrange for an appointment Test Results: You may shower on Wednesday please. No driving for at least 5 days. No shoveling or snow blowing. Discharge Plan Admission Admit Date/Time: 08/14/21 05:29 Primary Reason for Your Visit: Symptomatic critical stenosis left internal carot id artery Attending Provider: Avery Cortes Primary Care Provider: Jamey Pabon Discharge Orders/Prescriptions Prescriptions: Continued pantoprazole 20 mg tablet,delayed release (DR/EC) 20 mg PO DAILY RF: 0 atorvastatin 20 mg tablet 20 mg PO DAILY RF: 0 metoprolol tartrate 25 mg tablet 12.5 mg PO BID RF: 0 aspirin [Adult Low Dose Aspirin] 81 mg tablet,delayed release (DR/EC) 81 mg PO DAILY RF: 0 Referrals / Follow Up: Jamey Pabon MD [Primary Care Provider] - Disposition Disposition (needs filled in before D/C Order can be placed): Home, Self Care
[2021-08-14] MEDS: Lactated Ringers 1,000 ML 15 ML IV ×2 (06:01→09:16)
--- NOTE | 2021-08-14 06:23 | OP.PCM_ITS ---
Problems Associated Problem List Diagnoses (1) Carotid stenosis, left: Report of Operation Date of Procedure: 08/14/21 Pre-Operative Diagnosis: Symptomatic critical stenosis left extracranial internal carotid artery Post-Operative Diagnosis: Same Surgery/Procedure Performed:: Right radial arterial line placement Left carotid endarterectomy with bovine patch Vascu-Guard angioplasty [id number]; PN: [id number], expiry date 04/09/2026 Description of Surgical Findings:: Timeout and informed consent was obtained. 66-year-old gentleman at the bedside [place] test performed demonstrating adequate ulnar flow of the right wrist. Was gently extended prep with Betadine under ultrasound guidance 1% lidocaine was used as local anesthetic. 1 cc was used. A 20-gauge arrow Angiocath was used to transfix the vessel and then with Seldinger wire was easily advanced. It was secured to the skin with 3-0 silk and OpSite dressing and Xuan wrap. Excellent waveform was obtained. The p atient tolerated the procedure well there are no apparent complication. The patient was taken to the operating. He was placed upon the table underwent general endotracheal intubation anesthesia. Ancef 2 g were given intravenously. The left neck was sterilely prepped and draped. An oblique incision was made along the anterior border the sternocleidomastoid. Sharp dissection was performed down through the subcutaneous tissues. The sternocleidomastoid was reflected laterally and sharp dissection performed directly down upon the common carotid carotid bulb and bifurcation of the internal/external carotid. Crossing facial vein was secured with 3-0 Vicryl ligatures. Dacron tape Garcia tie was placed around the common carotid and a Dacron tape and Lauro tourniquet the internal carotid vessel loop around the external carotid with a 3-0 Vicryl around the superior thyroid artery. The hypoglossal nerve was identified and carefully preserved. The vagus nerve curved anteriorly and it had to be dissected free cephalad. The patient received 11,000 units of heparin. Later in the procedure he received additional 500 units of heparin based upon ACT measurements. Peripheral vascular clamps were placed on the internal carotid common carotid and external carotid. 11 blade was used to make an arteriotomy. I had seen difficult difficulty identifying the true lumen due to the very diminutive size. I then placed a #8 USC I style shunt cephalad and proximally. Time to place the shunt was 3 minutes. Lauro tourniquet was used cephalad to help secure and the Dacron tape at the common carotid. The plaque was carefully freed at the layer of the external elastic lamina. Was sharply transected proximally. Distally I felt I had good feathering at the internal carotid. Inversion endarterectomy was performed of the external carotid. Debris was carefully removed. 2 tacking sutures of 7-0 Prolene was used at the internal carotid intima. A 0.8 x 8 cm Vascu-Guard patch was shaped to form and then a patch angioplasty was performed with running 6-0 Prolene. Prior to completion then the shunt was removed the vessel was irrigated the patch angioplasty was completed external carotid common carotid internal carotid clamps were released. Time for shunt removal was just shy of 3 minutes. Several repair sutures of 6-0 Prolene were required. Hemostasis was then achieved. The patient then received 30 mg of protamine in aliquots as reversal. The neck was closed with a deep layer of running 3-0 Vicryl. Skin edges proximal and running septic or 5-0 Vicryl. Periincisional area was anesthetized with 20 cc of 0.5% Marcaine. Steri-Strips Telfa tape dressings applied. Sponge and instrument and needle counts were reported to the surgeon to be correct Specimens plaque. Drains none. Blood loss 200 cc. He appeared awake and neurologically intact on the table and was taken to the recovery area in satisfactory addition without apparent complication Avery Cortes M.D., F.A.C.S. Surgeon: Avery Cortes Type of Anesthesia: General and Local Anesthesiologist: Jose G Adame
[2021-08-14] MEDS: Heparin Injection (Vial) 5,000 UNIT/ML VIAL 5000 UNIT (07:41)
[2021-08-14] MEDS: Bupivacaine Mpf 0.5% 30 ML VIAL (09:30)
--- NOTE | 2021-08-14 10:31 | SUR.PHASEI ---
Manual pressure help at incision site for 30 mins. Strong peripheral pulses noted in all 4 extremities with full sensation.
[2021-08-14 11:29] LABS: ACT Activated Clotting Time 142 sec (74-137)
[2021-08-14 11:32] LABS: ACT Activated Clotting Time 273 sec (74-137)
[2021-08-14 11:33] LABS: ACT Activated Clotting Time 237 sec (74-137)
[2021-08-14] MEDS: Metoprolol Tartrate 25 MG Tablet 12.5 MG PO ×2 (12:57→22:20)
--- NOTE | 2021-08-14 13:14 | SUR.PHASEI ---
DR ANDRADE UPDATED ON PATIENT STATUS. DR ANDRADE STATES TO ADMIT PATIENT TO A MED [facility] NO TELEMETRY BED AND TO D/C THE ART LINE.
[2021-08-14] MEDS: Cefazolin 1 GM/50 ML BAG IV ×2 (14:51→22:24)
--- NOTE | 2021-08-14 16:11 | PCM.PN.SRG ---
Subjective Subjective Patient feels very well. Minimal pain. He has not yet voided but feels like he can Objective Data Objective Data Vital Signs: Vital Signs Temp Pulse Resp BP Pulse Ox 98.1 F 77 18 125/73 H 95 08/14/21 16:03 08/14/21 16:03 08/14/21 16:03 08/14/21 16:03 08/14/21 16:03 Oxygen Flow Rate (L/min) 2 Oxygen Delivery Method Room Air Weight: 238 lb 1.588 oz Body Mass Index (BMI) 33.2 Intake & Output: Intake and Output for Last 24 Hours 08/12/21 08/13/21 08/14/21 23:59 23:59 23:59 Intake Total 1110 / 1110 Balance 1110 / 1110 Lab / Micro Data Labs: Laboratory Results - last 24 hr 08/14/21 06:30: Activated Clotting Time 142 H 08/14/21 08:10: Activated Clotting Time 273 H 08/14/21 08:47: Activated Clotting Time 237 H Physical Exam Narrative Left neck is supple, nontender, no staining on the dressing neurologic status completely intact Assessment & Plan Assessment/Plan (1) Carotid stenosis, left: PLAN: Excellent progress postop day 0 from left carotid endarterectomy. Patient's heart rate blood pressure neurologic status all very stable. We will transfer to floor. Signature
--- NOTE | 2021-08-14 16:59 | PCS.PANDOC ---
PANDEMIC DOCUMENTATION INITIATED: Date: 03/17/2021 Time: 190
[2021-08-14] MEDS: Atorvastatin Calcium 20 MG Tablet PO (22:20)
[2021-08-15 00:38] VITALS: BP 131/61; PULSE 63; RESP 16; TEMP 36.6; O2SAT 94
[2021-08-15 04:24] VITALS: BP 154/82; PULSE 67; RESP 18; TEMP 36.4; O2SAT 95
--- NOTE | 2021-08-15 06:05 | PCM.PN.SRG ---
Subjective Subjective No complaints. Patient has minimal discomfort. He has not required any pain medicine. He feels that he is neurologically stable. Objective Data Objective Data Vital Signs: Vital Signs Temp Pulse Resp BP Pulse Ox 97.6 F L 67 18 154/82 H 95 08/15/21 04:24 08/15/21 04:24 08/15/21 04:24 08/15/21 04:24 08/15/21 04:24 Oxygen Flow Rate (L/min) 2 Oxygen Delivery Method Room Air Weight: 238 lb Body Mass Index (BMI) 33.2 Intake & Output: Intake and Output for Last 24 Hours 08/13/21 08/14/21 08/15/21 23:59 23:59 23:59 Intake Total 2406 / 2406 50 / 50 Output Total 400 / 400 Balance 2005 50 / 50 Lab / Micro Data Labs: Laboratory Results - last 24 hr 08/14/21 06:30: Activated Clotting Time 142 H 08/14/21 08:10: Activated Clotting Time 273 H 08/14/21 08:47: Activated Clotting Time 237 H Physical Exam Narrative Left neck is supple clean and dry. Nontender. Neurologic's intact. Unchanged from preop Assessment & Plan Assessment/Plan (1) Carotid stenosis, left: PLAN: Excellent postoperative course. Patient ready for discharge. I stressed the importance of his remaining on his aspirin and statin medication and low-dose metoprolol therapy. The patient is aware that Dr. Jamey Pabon long-term will decide and assist upon chronic hypertension treatment
[2021-08-15] MEDS: Pantoprazole Sodium 20 MG Tablet PO (07:56)
[2021-08-15 09:31] VITALS: BP 160/83; PULSE 87; RESP 18; TEMP 36.6; O2SAT 99
[2021-08-15 09:33] VITALS: BP 160/83; PULSE 87
[2021-08-15] MEDS: Aspirin E.C. 81 MG Tablet PO (09:33)
[2021-08-15] MEDS: Metoprolol Tartrate 25 MG Tablet 12.5 MG PO (09:33)
--- NOTE | 2021-08-15 10:28 | CASEMGMT ---
Patient discharged prior to RN CM assessment being completed. Patient has follow-up appt scheduled. No discharge needs identified.
== END 2021-08-15 10:09 | disposition home or self-care (01) | DRG 39 ==
LOC: ACINP 07:47 → MS2 15:39
PROVIDERS: Admitting Provider Surgery; PCP Family Medicine; Referring Provider Surgery; Visit Provider Surgery
PROC: 03CL0ZZ Extirpation of Matter from Left Internal Carotid Artery, Open Approach (ICD-10-PCS; CPT 35301; principal; 2021-08-14 07:10)
DX: I65.22 Occlusion and stenosis of left carotid artery (principal); I10 Essential (primary) hypertension; K21.9 Gastro-esophageal reflux disease without esophagitis; Z79.82 Long term (current) use of aspirin; Z79.899 Other long term (current) drug therapy; Z87.11 Personal history of peptic ulcer disease; Z87.19 Personal history of other diseases of the digestive system; Z87.891 Personal history of nicotine dependence
CPT/HCPCS: 85347; 88304; 88311; 93005; 99251; J7040; J7120; A4216; G0463; J2405

== ENCOUNTER 2021-09-08 12:46 | Outpatient (CLI) | payer OTHER, SELFPAY ==
--- NOTE | 2021-09-08 12:48 | CDUL_ITS ---
Reason For Study: Occlusion and stenosis of left carotid stenosis Lt. Velocities/BP Prox CCA 64.3/16 cm/sec. Mid CCA 91.7 cm/sec. Dist CCA 68.2/16 cm/sec. Prox ICA 80.9/17 cm/sec. Mid ICA 86.4/20.6 cm/sec. Dist ICA 86.4/26.1 cm/sec. Lt. ICA/CCA = 1.27. Prox ECA 236.9/43 cm/sec. Lt. Vert. 54.8/11.9 cm/sec. Left Extracranial There is intimal thickening but no significant atherosclerotic plaque noted in the left common carotid artery. There is intimal thickening but no significant atherosclerotic plaque noted in the left internal carotid artery. There is heterogeneous, irregular atherosclerotic plaque noted in the left external carotid artery. Antegrade flow is noted in the left vertebral artery. Procedure Carotid Duplex 13094. This is a Carotid Duplex examination using B-mode, color flow and specral Doppler. Exam performed in department. VL/Carotid Unilateral Interpretation Summary Postoperative changes of the left carotid bulb and proximal internal carotid ar lissette with no hemodynamically significant plaque Less than 50% stenosis left internal carotid artery Greater than 50% stenosis left external carotid artery Patent antegrade left vertebral Notable improvement of the left internal carotid from the previous examination of July 15, 2021 Ordering Physician: Avery Cortes Referring Physician: Jamey Pabon Performed By: Susan Forman RVT
== END 2021-09-08 23:59 | disposition home or self-care (01) ==
LOC: CVS 12:47
PROVIDERS: PCP Family Medicine; Referring Provider Surgery; Visit Provider Surgery
DX: I65.22 Occlusion and stenosis of left carotid artery (principal); Z98.890 Other specified postprocedural states
CPT/HCPCS: 93882

== ENCOUNTER → 2022-08-07 | Outpatient (CLI) | payer OTHER, SELFPAY ==
--- NOTE | 2022-08-07 09:59 | CDU_ITS ---
Reason For Study: Carotid stenosis Rt. Velocities/BP Lt. Velocities/BP Prox CCA 77.8/17.3 cm/sec. Prox CCA 79/18.8 cm/sec. Mid CCA 71.1/18.2 cm/sec. Mid CCA 82.6/23.7 cm/sec. Dist CCA 73/17.3 cm/sec. Dist CCA 69.1/17.6 cm/sec. Prox ICA 83.9/26.2 cm/sec. Prox ICA 88.2/29.8 cm/sec. Mid ICA 94.9/34.8 cm/sec. Mid ICA 110.1/37.1 cm/sec. Dist ICA 97.4/33.5 cm/sec. Dist ICA 106.5/38.9 cm/sec. Rt. ICA/CCA = 1.33. Lt. ICA/CCA = 1.39. Prox ECA 98.6/15.1 cm/sec. Prox ECA 169.7/29.2 cm/sec. Rt. Vert. 47/16.3 cm/sec. Lt. Vert. 52/17.6 cm/sec. Right Extracranial There is homogeneous, smooth atherosclerotic plaque noted in the right common carotid artery. There is heterogeneous, irregular atherosclerotic plaque noted in the right internal carotid artery. There is heterogeneous, irregular atherosclerotic plaque noted in the right external carotid artery. Antegrade flow is noted in the right vertebral artery. Left Extracranial There is homogeneous, smooth atherosclerotic plaque noted in the left common carotid artery. There is intimal thickening but no significant atherosclerotic plaque noted in the left internal carotid artery. There is intimal thickening but no significant atherosclerotic plaque noted in the left external carotid artery. Antegrade flow is noted in the left vertebral artery. Procedure Carotid Duplex 83994. This is a Carotid Duplex examination using B-mode, color flow and specral Doppler. Exam performed in department. VL/Carotid Duplex Ultrasound Interpretation Summary Irregular calcific plaque at the proximal right internal carotid artery with le ss than 50% stenosis Less than 50% stenosis right external carotid artery Intimal thickening at the proximal left internal carotid artery with less than 50% stenosis Less than 50% stenosis left external carotid artery Patent and antegrade vertebral arteries bilaterally Ordering Physician: Avery Cortes Referring Physician: Jamey Pabon MD Performed By: Susan Forman RVT
[2022-08-07 12:24] LABS: Absolute Lymphocyte Count 1.44 X10^3/uL (0.83-4.51); Absolute Neutrophil Count 3.4 X10^3/uL (2.0-7.7); Basophil# 0.04 X10^3/uL; Basophil% 0.7 % (0-1); Eosinophil# 0.17 X10^3/uL; Eosinophils% 2.9 % (0-5); Hematocrit 44.7 % (40-54); Hemoglobin 14.3 g/dL (13.0-16.5); Lymphocyte # 1.44 X10^3/ul (0.83-4.51); Lymphocyte % 24.8 % (19-41); Mean Corpuscular Hgb 29.3 pg (27.0-32.0); Mean Corpuscular Volume 91.6 fL (80-94); Monocyte# 0.73 X10^3/uL; Monocyte% 12.6 % (0-10); NRBC Flagged by Analyzer 0 % (0-5); Neutrophil # 3.42 X10^3/uL (2.7-7.7); Neutrophil % 58.8 % (47-70); Platelet Count 252 K/mm3 (150-450); RBC Distribution Width SD 42.9 fl (35.1-43.9); Red Blood Count 4.88 M/mm3 (4.6-6.2); White Blood Count 5.8 K/mm3 (4.4-11.0)
[2022-08-07 12:33] LABS: Microalbumin,Random Urine < 5.0 mg/L (NO RANGE EST.)
[2022-08-07 12:58] LABS: ALB/GLOB Ratio 1.3 RATIO (0.9-2.4); AST(SGOT) 29 U/L (15-37); Alanine Aminotransfer ALT/SGPT 57 U/L (16-61); Albumin, Serum 4.1 g/dL (3.2-5.0); Alkaline Phosphatase 100 U/L (45-117); Anion Gap 5 (5-15); BUN 17 mg/dL (7-18); Calcium,Total 9.1 mg/dL (8.5-10.1); Chloride 105 mmol/L (98-107); Cholesterol 106 mg/dL (200); EST Glomerular Filtration Rate 80 mL/min (>60); Est Glom Filt Rate - Afr Amer 96 mL/min (>60); Globulin 3.1 g/dL (2.2-4.2); Glucose 94 mg/dL (74-106); High Density Lipoprotein 42 mg/dL; Potassium 4.8 mmol/L (3.5-5.1); Protein, Total 7.2 g/dL (6.4-8.2); Sodium Level 138 mmol/L (136-145); Triglycerides 62 mg/dL; Very Low Density Lipoprotein 12 mg/dL (5-40)
== END | disposition home or self-care (01) ==
PROVIDERS: PCP Family Medicine; Referring Provider Surgery; Visit Provider Surgery
DX: Z00.00 Encounter for general adult medical examination without abnormal findings (principal); Z98.890 Other specified postprocedural states; I65.22 Occlusion and stenosis of left carotid artery; Z79.891 Long term (current) use of opiate analgesic
CPT/HCPCS: 36415; 80053; 80061; 82043; 82570; 85025; 93880

== ENCOUNTER → 2024-04-14 | Outpatient (CLI) | payer OTHER, SELFPAY | END | disposition home or self-care (01) | LOC: LABSPEC 15:39 | PROVIDERS: PCP Family Medicine; Visit Provider Surgery | DX: L02.91 Cutaneous abscess, unspecified (principal) | CPT/HCPCS: 87070; 87075; 87077; 87186; 87205 ==

== ENCOUNTER → 2025-05-29 | Outpatient (CLI) | payer OTHER, SELFPAY ==
[2025-05-29 10:14] LABS: Creatinine, Urine (random) 289.00 mg/dL (39.00-259.00); Microalbumin,Random Urine 39.1 mg/L (<20 mg/L)
[2025-05-29 10:20] LABS: AST(SGOT) 26 U/L (<=37); Alanine Aminotransfer ALT/SGPT 30 U/L (<=46); Albumin, Serum 4.3 g/dL (3.4-4.8); Alkaline Phosphatase 85 U/L (40-129); Anion Gap 11 (5-15); BUN 13 mg/dL (4-19); BUN/Creat Ratio 14.1 RATIO (10-20); Calcium,Total 9.3 mg/dL (7.6-11.0); Carbon Dioxide 24.9 mmol/L (21.0-32.0); Chloride 103 mmol/L (98-108); Cholesterol 102 mg/dL (<=200); Globulin 2.9 g/dL (2.2-4.2); Glucose 106 mg/dL (70-99); Potassium 4.5 mmol/L (3.3-5.1)
== END | disposition home or self-care (01) ==
LOC: MFPLAB 08:35
PROVIDERS: PCP Family Medicine; Visit Provider Family Medicine
DX: I10 Essential (primary) hypertension (principal)
CPT/HCPCS: 36415; 80053; 82043; 82465; 82570; 83718